=== PATIENT | female | born 1955 | race Caucasian/White ===

== ENCOUNTER 2020-06-01 08:14 | Outpatient (REF) | payer OTHER, SELFPAY ==
--- NOTE | 2020-06-01 | CT_ITS ---
EXAMINATION: LUNG CANCER SCREENING CLINICAL INFORMATION: Lung cancer screening COMPARISON: Previous chest CT scans most recent May 2019 TECHNIQUE: Axial images through the chest without contrast. Sagittal and coronal reconstructions on the technologist workstation were performed. Patient dose 41 mgy/cm. This CT examination was performed using dose optimization techniques as appropriate, variously including the following: *Automated exposure control *Adjustment of mA and/or kV according to patient size (this includes techniques or standardized protocols for targeted exams where dose is matched to indication/reason for exam; i.e. extremities or head) *Use of iterative reconstruction technique FINDINGS: The small calcified and noncalcified pulmonary nodules are stable, largest measuring 2 mm. The lungs are otherwise clear. The mediastinum is normal. There is no pleural effusion or pleural thickening. No chest wall mass or enlarged axillary lymph nodes are seen. There is a peripheral low-attenuation lesion in the medial segment the left lobe of the liver measuring 1.3 x 2 cm that is stable and may represent a cyst. There are mild degenerative changes of the spine. IMPRESSION: Stable small pulmonary nodules. Category: 2 benign Recommendation: Annual low-dose chest CT follow-up recommended.
== END 2020-06-01 08:15 | disposition home or self-care (01) ==
LOC: HO.CT 08:14
PROVIDERS: PCP Internal Medicine; Visit Provider Surgery
DX: F17.210 Nicotine dependence, cigarettes, uncomplicated (principal); R91.8 Other nonspecific abnormal finding of lung field
CPT/HCPCS: 71250

== ENCOUNTER → 2020-06-05 08:34 | Outpatient (BNVA) | payer OTHER, SELFPAY | PROVIDERS: PCP Internal Medicine; Referring Provider Internal Medicine; Visit Provider Internal Medicine | DX: Z76.89 Persons encountering health services in other specified circumstances (principal) ==

== ENCOUNTER 2020-08-10 10:44 | Outpatient (REF) | payer OTHER, SELFPAY ==
--- NOTE | 2020-08-10 11:12 | MM_ITS ---
EXAMINATION: MM SCREENING DIGITAL BREAST TOMOSYNTHESIS, BILATERAL CLINICAL INFORMATION: Screening. Asymptomatic. The lifetime risk of breast cancer based on the Tyrer-Cuzick Model is 5.8%. COMPARISON: Mammography: July 01, 2019 and studies dating back to April 26, 2016 TECHNIQUE: Digital breast tomosynthesis is performed in both the craniocaudal and mediolateral oblique views along with computer-aided detection (CAD). Synthesized 2D images are generated from the tomosynthesis. FINDINGS: The breasts are heterogeneously dense, which may obscure small masses (ACR BI-RADS breast composition Category c). There are no significant masses, abnormal calcifications, or other abnormalities. MM/MM tomosynthesis screening BI IMPRESSION: There are no significant changes from prior study. ASSESSMENT: BI-RADS 1: Negative RECOMMENDATION: Routine annual mammography screening. This patient's information was entered into a reminder system with a target due date for their next mammogram.
== END 2020-08-10 10:45 | disposition home or self-care (01) ==
LOC: HO.MAMMO 10:44
PROVIDERS: PCP Internal Medicine; Visit Provider Internal Medicine
DX: Z12.31 Encounter for screening mammogram for malignant neoplasm of breast (principal)
CPT/HCPCS: 77063; 77067

== ENCOUNTER 2020-08-21 13:17 | Outpatient (REF) | payer OTHER, SELFPAY ==
[2020-08-21 13:53] LABS: COVID-19 Test Negative (Negative)
== END 2020-08-21 13:18 | disposition home or self-care (01) ==
LOC: HO.EMPCOV 13:17
PROVIDERS: PCP Internal Medicine; Visit Provider Internal Medicine
DX: Z20.828 Contact with and (suspected) exposure to other viral communicable diseases (principal)
CPT/HCPCS: 87635; C9803

== ENCOUNTER 2020-09-08 07:48 | Outpatient (REF) | payer OTHER, SELFPAY ==
[2020-09-08 11:06] LABS: Alanine Aminotransferase 22 U/L (0-31); Aspartate Amino Transferase 21 U/L (5-31); Cholesterol 228 mg/dL; HDL Cholesterol 56 mg/dL; LDL Cholesterol Calculated 114 mg/dl; Triglycerides 294 mg/dL; Uric Acid 4.7 mg/dL (2.4-5.7)
== END 2020-09-08 07:49 | disposition home or self-care (01) ==
LOC: HO.10HDL 07:48
PROVIDERS: Visit Provider Internal Medicine
DX: M10.9 Gout, unspecified (principal); E78.5 Hyperlipidemia, unspecified
CPT/HCPCS: 36415; 80061; 84450; 84460; 84550

== ENCOUNTER 2020-10-09 07:47 | Outpatient (REF) | payer OTHER, SELFPAY ==
[2020-10-09 11:02] LABS: Albumin Level 4.2 g/dL (3.5-5.0)
== END 2020-10-09 07:48 | disposition home or self-care (01) ==
LOC: HO.10HDL 07:47
PROVIDERS: Visit Provider Surgery
DX: Z98.890 Other specified postprocedural states (principal)
CPT/HCPCS: 36415; 82040; 82310

== ENCOUNTER 2020-10-19 08:20 | Outpatient (REF) | payer OTHER, SELFPAY ==
[2020-10-19 11:14] LABS: Albumin Level 4.3 g/dL (3.5-5.0); Calcium 9.3 mg/dL (8.4-10.2)
== END 2020-10-19 08:21 | disposition home or self-care (01) ==
LOC: HO.10HDL 08:20
PROVIDERS: Visit Provider Surgery
DX: E89.2 Postprocedural hypoparathyroidism (principal); Z98.890 Other specified postprocedural states
CPT/HCPCS: 36415; 82040; 82310

== ENCOUNTER 2020-12-01 08:09 | Outpatient (REF) | payer OTHER, SELFPAY ==
[2020-12-01 08:43] LABS: COVID-19 Test Negative (Negative)
== END 2020-12-01 08:10 | disposition home or self-care (01) ==
LOC: HO.EMPCOV 08:09
PROVIDERS: Visit Provider Internal Medicine
DX: Z20.822 Contact with and (suspected) exposure to COVID-19 (principal)
CPT/HCPCS: 36415; 87635; C9803

== ENCOUNTER → 2020-12-11 09:20 | Outpatient (BNVA) | payer OTHER, SELFPAY | PROVIDERS: PCP Internal Medicine; Visit Provider Internal Medicine ==

== ENCOUNTER 2020-12-14 12:17 | Outpatient (REF) | payer OTHER, SELFPAY ==
[2020-12-14 14:42] LABS: Alanine Aminotransferase 27 U/L (0-31); Albumin Level 4.3 g/dL (3.5-5.0); Alkaline Phosphatase 77 U/L (39-117); Anion Gap 14 (12-20); Aspartate Amino Transferase 22 U/L (5-31); Bilirubin Total 0.5 mg/dL (0.0-1.0); Blood Urea Nitrogen 10 mg/dL (9-16); Calcium 9.3 mg/dL (8.4-10.2); Carbon Dioxide 23 mmol/L (22-29); Chloride 107 mmol/L (96-108); Estimated Glomerular Filt Rate > 60; Glucose Random 96 mg/dL (60-115); Phosphorus 3.8 mg/dL (2.7-4.5); Potassium 4.1 mmol/L (3.3-5.1); Sodium 140 mmol/L (135-145); Total Protein 6.8 g/dL (6.5-8.0)
[2020-12-14 15:04] LABS: Vitamin D 25-OH Total 72.6 ng/mL (>30)
[2020-12-15 12:46] LABS: Calcium (PTHI) 9.8 mg/dL (8.6-10.4); PTHI 8 pg/mL (14-64)
== END 2020-12-14 12:18 | disposition home or self-care (01) ==
LOC: HO.10HDL 12:17
PROVIDERS: Visit Provider Internal Medicine
DX: E21.3 Hyperparathyroidism, unspecified (principal); E55.9 Vitamin D deficiency, unspecified
CPT/HCPCS: 36415; 80053; 82306; 83970; 84100

== ENCOUNTER 2021-01-10 07:45 | Outpatient (REF) | payer OTHER, SELFPAY ==
[2021-01-10 10:36] LABS: Cholesterol 218 mg/dL; HDL Cholesterol 52 mg/dL; LDL Cholesterol Calculated 100 mg/dl; Triglycerides 334 mg/dL
== END 2021-01-10 07:46 | disposition home or self-care (01) ==
LOC: HO.10HDL 07:45
PROVIDERS: Visit Provider Internal Medicine
DX: E78.1 Pure hyperglyceridemia (principal)
CPT/HCPCS: 36415; 80061

== ENCOUNTER 2021-04-03 07:47 | Outpatient (REF) | payer OTHER, SELFPAY ==
[2021-04-03 11:36] LABS: Alanine Aminotransferase 21 U/L (0-31); Albumin Level 4.4 g/dL (3.5-5.0); Alkaline Phosphatase 74 U/L (39-117); Anion Gap 13 (12-20); Aspartate Amino Transferase 26 U/L (5-31); Bilirubin Total 0.3 mg/dL (0.0-1.0); Blood Urea Nitrogen 10 mg/dL (9-16); Carbon Dioxide 24 mmol/L (22-29); Chloride 107 mmol/L (96-108); Cholesterol 218 mg/dL; Estimated Glomerular Filt Rate > 60; Glucose Random 88 mg/dL (60-115); HDL Cholesterol 58 mg/dL; LDL Cholesterol Calculated 96 mg/dl; Potassium 4.3 mmol/L (3.3-5.1); Sodium 140 mmol/L (135-145); Triglycerides 320 mg/dL
[2021-04-03 11:58] LABS: Free T4 (Free Thyroxine) 0.97 ng/dL (0.71-1.85); Thyroid Stimulating Hormone 1.46 uIU/mL (0.32-4.0); Vitamin D 25-OH Total 43.6 ng/mL (>30)
[2021-04-06 13:36] LABS: Calcium (PTHI) 8.8 mg/dL (8.6-10.4); PTHI 22 pg/mL (14-64)
== END 2021-04-03 07:48 | disposition home or self-care (01) ==
LOC: HO.10HDL 07:47
PROVIDERS: Visit Provider Internal Medicine
DX: E21.3 Hyperparathyroidism, unspecified (principal); E04.2 Nontoxic multinodular goiter; E55.9 Vitamin D deficiency, unspecified; E78.1 Pure hyperglyceridemia
CPT/HCPCS: 36415; 80053; 80061; 82306; 83970; 84100; 84439; 84443

== ENCOUNTER → 2021-04-09 08:36 | Outpatient (BNVA) | payer OTHER, SELFPAY | PROVIDERS: PCP Internal Medicine; Visit Provider Internal Medicine ==

== ENCOUNTER 2021-04-25 11:26 | Outpatient (REF) | payer OTHER, SELFPAY ==
--- NOTE | ~2021-04-25 | US_ITS ---
EXAMINATION: US THYROID CLINICAL INFORMATION: Nontoxic multinodular goiter. COMPARISON: Ultrasound soft tissue head/neck thyroid dated 04/19/2020. TECHNIQUE: Linear transducer grayscale and color Doppler examination with attention to the region of the thyroid. FINDINGS: SIZE: Measurements of the thyroid lobes and nodules are given in sagittal, anteroposterior and transverse dimensions respectively. Right Thyroid Lobe: 4.3 x 1.0 x 1.5 cm, volume 3.4 mL. Previously 5.1 x 1.4 x 1.1 cm, volume 4.2 mL. Parenchyma: The gland echotexture is homogeneous. Thyroid vascularity is increased. Left Thyroid Lobe: 4.0 x 1.3 x 1.4 cm, volume 3.8 mL. Previously 4.3 x 2.0 x 1.4 cm, volume 6.4 mL. Parenchyma: The gland echotexture is homogeneous. Thyroid vascularity is increased. Isthmus: 0.28 cm in maximum AP dimension. Previously 0.51 cm. Estimated total number of nodules greater than or equal to 1 cm: 0. Capacity Analyst nodules are described as follows: 1. Location: Left mid. Size: 0.64 x 0.64 x 1.0 cm, volume 0.21 mL. Previously: 0.74 x 0.86 x 0.72 cm, volume 0.24 mL. Nodule characteristics: Composition: Solid/almost completely solid (2). Echogenicity: Isoechoic (1). Shape: Not taller than wide (0). Margins: Smooth (0). Echogenic Foci: None (0). ACR TI-RADS total points: 3 Previous: n/a ACR TI-RADS category: 3 Previous: n/a Significant change in size (>/= 20% in 2 dimensions and minimal increase of 2 mm or 50% or greater increase in volume): No Change in features: No Change in ACR TI-RADS risk category: n/a 2. Location: Left inferior. Size: 0.59 x 0.26 x 0.51 cm, volume 0.04 mL. Previously: 0.61 x 0.45 x 0.6 cm, volume 0.09 mL. Nodule characteristics: Composition: Solid/almost completely solid (2). Echogenicity: Isoechoic (1). Shape: Not taller than wide (0). Margins: Smooth (0). Echogenic Foci: None (0). ACR TI-RADS total points: 3 Previous: n/a ACR TI-RADS category: 3 Previous: n/a Significant change in size (>/= 20% in 2 dimensions and minimal increase of 2 mm or 50% or greater increase in volume): No Change in features: No Change in ACR TI-RADS risk category: n/a NODES: No lymphadenopathy is seen in the tissue surrounding the thyroid gland. US/US thyroid IMPRESSION: Two tiny subcentimeter nodules left lobe of thyroid. No follow-up is indicated. ACR TI-RADS RECOMMENDATION REFERENCE: Ultrasound-guided fine-needle aspiration, followup ultrasound, no further follow up. * TR1 (0 point) and TR 2 (2 points): No FNA or follow up * TR3 (3 points): FNA if more than or equal to 2.5 cm in maximum dimension, followup ultrasound in 1, 3 and 5 years if 1.5 to 2.4 cm in maximum dimension. * TR4 (4-6 points): FNA if more than or equal to 1.5 cm in maximum dimension, followup ultrasound in 1, 2, 3 and 5 years if 1 to 1.4 cm in maximum dimension. * TR5 (more than or equal to 7 points): FNA if more than or equal to 1 cm in maximum dimension, followup ultrasound every year for 5 years if 0.5 to 0.9 cm in maximum dimension. * TR3, TR4 or TR5 nodules that are below the size threshold for follow up receive no follow up.
== END 2021-04-25 11:27 | disposition home or self-care (01) ==
LOC: HO.US 11:26
PROVIDERS: Visit Provider Internal Medicine
DX: E04.2 Nontoxic multinodular goiter (principal)
CPT/HCPCS: 76536

== ENCOUNTER 2021-08-23 07:56 | Outpatient (REF) | payer OTHER, SELFPAY ==
--- NOTE | ~2021-08-23 | MM_ITS ---
EXAMINATION: MM SCREENING DIGITAL BREAST TOMOSYNTHESIS, BILATERAL CLINICAL INFORMATION: Screening. Asymptomatic. The lifetime risk of breast cancer based on the Tyrer-Cuzick Model is 6%. COMPARISON: Mammography: 08/10/2020, 07/01/2019, 06/29/2018 TECHNIQUE: Digital breast tomosynthesis is performed in both the craniocaudal and mediolateral oblique views along with computer-aided detection (CAD). Synthesized 2D images are generated from the tomosynthesis. FINDINGS: The breasts are heterogeneously dense, which may obscure small masses (ACR BI-RADS breast composition Category c). There are no significant masses, abnormal calcifications, or other abnormalities. There is fine fibronodular parenchymal pattern similar to prior studies. Some scattered small nodularity likely related to intramammary nodes are stable. The skin contours are smooth. No significant changes. MM/MM tomosynthesis screening BI IMPRESSION: No mammographic evidence of malignancy. ASSESSMENT: BI-RADS 2: Benign RECOMMENDATION: Routine annual mammography screening. This patient's information was entered into a reminder system with a target due date for their next mammogram.
== END 2021-08-23 07:57 | disposition home or self-care (01) ==
LOC: HO.MAMMO 07:56
PROVIDERS: PCP Internal Medicine; Visit Provider Internal Medicine
DX: Z12.31 Encounter for screening mammogram for malignant neoplasm of breast (principal)
CPT/HCPCS: 77063; 77067

== ENCOUNTER 2022-02-19 06:49 | Day surgery (SDC) | payer OTHER, SELFPAY ==
[2022-02-12 14:10] VITALS: BMI 21.7
--- NOTE | 2022-02-18 09:06 | HO.ANESPROP2 ---
Documented by User: Heydi Phan NP 02/18/22 09:07 HPI - Anesthesia Eval Consult details Narrative: 66yo F for Colonoscopy PMFSH Active Problems Active Problems: All Active Problems (Updated 02/12/22 @ 14:07 by Lisandra Lux, VINCENT) Hyperparathyroidism (Acute) Osteoporosis (Acute) Multinodular thyroid (Acute) Vitamin D deficiency (Acute) Hypertriglyceridemia (Acute) Pruritic intertrigo (Acute) Smoker unmotivated to quit (Acute) Past Medical History Medical History Gout Gout Family History Family History Mother Alcoholism Father Alcoholism Surgical History Surgical History Hx of parathyroidectomy No pertinent past surgical history Social History Social History Alcohol intake: current Patient Tobacco Use Status: Current everyday Tobacco user Tobacco use type: Cigarette Cigarette Packs Per Day: 1 Cigarettes Per Day: 10 Years Smoked: 48 Smoked in Last 30 Days: Yes e-Cigarette/Vaping Use: Never Used Second Hand Smoke Exposure: No Use of substances other than those prescribed or required for medical reasons: No Are you DNR?: No Advance Directives: No Advance Directives Information Provided: Yes Advance Directives Date on File: 06/01/20 Meds Allergies Allergy/AdvReac Type Severity Reaction Status Date / Time Seasonal Allergies Allergy Mild seasonal Verified 09/10/21 03:13 allergies Home Medications Medication Instructions Recorded Confirmed Last Taken Type calcium carbonate 600 mg-vitamin tab PO 01/16/21 09/10/21 Unknown History D3 25 mcg (1,000 unit) tablet omega-3 fatty acids 1,250 mg 2,500 mg PO DAILY 01/16/21 02/19/22 02/09/22 History capsule Exam Exam Date and Time: February 18, 2022 0906 Height,Weight and Vital Signs: Height 5 ft 2 in Weight 53.977 kg Assessment and Plan Assessment Anesthesia Assessment: Chart Reviewed Documented by User: Felix Sharpe MD 02/19/22 08:27 PMFSH Past Medical History Medical History Gout Gout Family History Family History Mother Alcoholism Father Alcoholism Family history of problems with anesthesia: No Surgical History Surgical History Hx of parathyroidectomy No pertinent past surgical history History of Problems with Anesthesia: No Social History Social History Alcohol intake: current Patient Tobacco Use Status: Current everyday Tobacco user Tobacco use type: Cigarette Cigarette Packs Per Day: 1 Cigarettes Per Day: 10 Years Smoked: 48 Smoked in Last 30 Days: Yes e-Cigarette/Vaping Use: Never Used Second Hand Smoke Exposure: No Use of substances other than those prescribed or required for medical reasons: No Are you DNR?: No Advance Directives: No Advance Directives Information Provided: Yes Advance Directives Date on File: 06/01/20 Meds Allergies Allergy/AdvReac Type Severity Reaction Status Date / Time Seasonal Allergies Allergy Mild seasonal Verified 09/10/21 03:13 allergies Home Medications Medication Instructions Recorded Confirmed Last Taken Type calcium carbonate 600 mg-vitamin tab PO 01/16/21 09/10/21 Unknown History D3 25 mcg (1,000 unit) tablet omega-3 fatty acids 1,250 mg 2,500 mg PO DAILY 01/16/21 02/19/22 02/09/22 History capsule Exam Airway Mallampati Class: II TM Dist: >3cm Neck ROM: Full Assessment and Plan Assessment Anesthesia Assessment: Anesthesia Plan Discussed Final Anesthetic Review Family History of Problems with Anesthesia: No History of Problems with Anesthesia: No NPO: Yes ASA Class: II Final Preanesthetic Review: No Changes in Pt Med Stat, Meds/Allgs Chart Reviewed, Consent Obtained/Reviewed and Anes Risks/Benef Reviewed Patient Risk: Low Procedure Risk: Low Anesthetic Plan Anesthetic Plan: MAC: Disposition: Standard PACU
[2022-02-19 07:06] VITALS: BMI 21.2
[2022-02-19 07:37] VITALS: BP 141/68; PULSE 74; RESP 18; TEMP 36.8; O2SAT 99
[2022-02-19] MEDS: Sodium Phosphate,Mono-Dibasic 133 ML ENEMA PR (07:54)
[2022-02-19] MEDS: Lactated Ringers 1,000 ML 100 ML IVCONT (07:54)
--- NOTE | 2022-02-19 08:27 | MHC.SHP ---
Pre-Procedural Eval Section A Date of Service: 02/19/22 Section B Chief Complaint: screening Details of Present Illness: see H&P no changes Relevant Family History (Specify if Yes): No Relevant Social History: None Present Medications: see Short Stay Collaborative assessment Medical History: No relevant PMH History of Previous Operations: No relevant previous surgery Allergies: Allergies Allergy/AdvReac Type Severity Reaction Status Date / Time Seasonal Allergies Allergy Mild seasonal Verified 09/10/21 03:13 allergies Review of Systems Sugical H&P ROS: Negative: Constitution, Cardiovascular, Respiratory, Neurological, Psychiatric, Hem-Onc, Allergic/Immunologic, Gastrointestinal, Genitourinary, Musculoskeletal, Integumentary, Endocrine and Eyes/Ears/Nose/Throat Exam Surgical H&P Exam: Normal: HEENT, Normal: Heart, Normal: Lungs, Normal: Extremities, Normal: Abdomen, Normal: Skin and Normal: Neurological Plan Diagnosis/Plan: Unchanged I have reviewed the history and physical and performed a pertinent physical examination on my patient. No changes have occurred unless specified.
[2022-02-19 09:05] VITALS: BP 124/69; PULSE 68; RESP 15; TEMP 36.2; O2SAT 97
[2022-02-19 09:20] VITALS: BP 153/78; PULSE 68; RESP 18; TEMP 36.2; O2SAT 100
--- NOTE | 2022-02-19 13:15 | OP_ITS ---
SURGEON: Roberto Chen MD INDICATIONS: Colon cancer screening and prior history of adenomatous colon polyps. PREOPERATIVE DIAGNOSIS: POSTOPERATIVE DIAGNOSIS: PROCEDURE PERFORMED: Colonoscopy to the terminal ileum with biopsy. ESTIMATED BLOOD LOSS: COMPLICATIONS: ANESTHESIA: ASSISTANTS: SPECIMENS: MEDICATIONS: Monitored anesthesia care. DESCRIPTION OF PROCEDURE: History and physical were performed. The risks and benefits of the procedure were explained to the patient. Informed consent was obtained. The patient was placed in the left lateral decubitus position. A digital rectal exam was performed and was found to be normal. The Olympus pediatric video colonoscope was introduced into the rectum and advanced to the cecum without difficulty. The cecum was identified by transillumination, palpation, and identification of ileocecal valve. Examination was performed. The scope was removed. She tolerated the procedure well and was sent to recovery area in stable condition. FINDINGS: The terminal ileum was not examined. The visualized colonic mucosa was within normal limits without evidence of masses or ulcers. Multiple polyps were identified. All were less than 10 mm and removed with biopsy forceps. Polyps were located at 70 cm, 45 cm, 30 cm, 35 cm, and 2 in the rectum. There were other multiple rectal polyps that appeared hyperplastic, which were not biopsied. Retroflexed examination showed internal hemorrhoids. There was moderate sigmoid diverticulosis. IMPRESSION: Colon polyps. RECOMMENDATION: Follow up the biopsy results. MD SUZANNE Alejandro/ANGEL / [id number]
== END 2022-02-19 10:05 | disposition home or self-care (01) ==
PROVIDERS: PCP Internal Medicine; Visit Provider Internal Medicine Gastroenterology
PROC: 0DJD8ZZ Inspection of Lower Intestinal Tract, Via Natural or Artificial Opening Endoscopic (ICD-10-PCS; CPT 45378; principal; 2022-02-19 08:10)
DX: Z12.11 Encounter for screening for malignant neoplasm of colon (principal); D12.0 Benign neoplasm of cecum; Z86.010 Personal history of colon polyps; D12.4 Benign neoplasm of descending colon; D12.5 Benign neoplasm of sigmoid colon; K62.1 Rectal polyp; K57.30 Diverticulosis of large intestine without perforation or abscess without bleeding; K64.8 Other hemorrhoids; E78.00 Pure hypercholesterolemia, unspecified; M10.9 Gout, unspecified; Z79.899 Other long term (current) drug therapy; F17.210 Nicotine dependence, cigarettes, uncomplicated
CPT/HCPCS: 45380; 88305

== ENCOUNTER 2022-03-07 07:36 | Outpatient (REF) | payer OTHER, SELFPAY ==
[2022-03-07 10:41] LABS: Alanine Aminotransferase 23 U/L (0-31); Albumin Level 4.4 g/dL (3.5-5.0); Alkaline Phosphatase 77 U/L (39-117); Anion Gap 14 (12-20); Aspartate Amino Transferase 25 U/L (5-31); Bilirubin Total 0.5 mg/dL (0.0-1.0); Blood Urea Nitrogen 12 mg/dL (9-16); Carbon Dioxide 23 mmol/L (22-29); Chloride 106 mmol/L (96-108); Cholesterol 238 mg/dL; Estimated Glomerular Filt Rate > 60; Glucose Random 102 mg/dL (60-115); HDL Cholesterol 59 mg/dL; LDL Cholesterol Calculated 135 mg/dl; Phosphorus 3.9 mg/dL (2.7-4.5); Potassium 4.2 mmol/L (3.3-5.1); Sodium 139 mmol/L (135-145); Total Protein 6.9 g/dL (6.5-8.0); Triglycerides 222 mg/dL; Uric Acid 4.6 mg/dL (2.4-5.7)
[2022-03-07 11:01] LABS: Thyroid Stimulating Hormone 1.93 uIU/mL (0.32-4.0)
[2022-03-07 11:02] LABS: Free T4 (Free Thyroxine) 0.95 ng/dL (0.71-1.85)
[2022-03-12 19:41] LABS: Calcium (PTHI) 9.1 mg/dL (8.6-10.4); PTHI 32 pg/mL (16-77)
== END 2022-03-07 07:37 | disposition home or self-care (01) ==
LOC: HO.10HDL 07:36
PROVIDERS: Absent Provider Internal Medicine; Visit Provider Internal Medicine
DX: E79.0 Hyperuricemia without signs of inflammatory arthritis and tophaceous disease (principal); E21.3 Hyperparathyroidism, unspecified; E04.2 Nontoxic multinodular goiter; E55.9 Vitamin D deficiency, unspecified; E78.1 Pure hyperglyceridemia
CPT/HCPCS: 36415; 80053; 80061; 82306; 83970; 84100; 84439; 84443; 84550

== ENCOUNTER 2022-03-27 08:08 | Outpatient (REF) | payer OTHER, SELFPAY ==
--- NOTE | ~2022-03-27 | CT_ITS ---
EXAMINATION: CT CHEST SCREENING CLINICAL INFORMATION: Nicotine dependence. COMPARISON: CT lungs 06/01/2020. TECHNIQUE: Multidetector volumetric CT imaging of the chest is performed without contrast using low dose technique. Additional 2D coronal and sagittal reformatted images and axial 3D maximum intensity projection (MIP) images are generated on the CT workstation. This CT examination was performed using dose optimization techniques as appropriate, variously including the following: *Automated exposure control *Adjustment of mA and/or kV according to patient size (this includes techniques or standardized protocols for targeted exams where dose is matched to indication/reason for exam; i.e. extremities or head) *Use of iterative reconstruction technique DLP: 181 mGy-cm FINDINGS: LUNGS: The lungs are well expanded and clear of acute pneumonic process. There are punctate 2 mm calcified nodules, stable. A subpleural 2 mm nodule left upper lobe axial image 95/6 is stable. No new nodules seen. Minimal atelectasis/scarring seen in the lingula. MEDIASTINUM: The thyroid lobes are symmetrical and normal. Central trachea and the bronchi are widely patent. Heart size and the great vessels are normal caliber. There is no pericardial effusion. A small hiatal hernia is noted. No abnormal-sized mediastinal or hilar lymph nodes seen. PLEURA: There is no pleural effusion. No pleural mass or thickening. AXILLA: Small shotty lymph nodes are seen axilla. The chest wall is asymmetric with a small right hemithorax compared to left side. No chest wall lesion seen. UPPER ABDOMEN: There are 2 hypodense 1.3 cm lesions left hepatic lobe measuring cyst density. There is a punctate calcification left upper pole cortex. OSSEOUS STRUCTURES: No aggressive lytic or sclerotic process seen. Mild ventral spondylosis mid and lower dorsal spine. CT/CT lung screening IMPRESSION: Stable calcified 2 mm pulmonary nodule and a pleural-based 2 mm left upper lobe nodule. ASSESSMENT: Lung-RADS category 2: Benign. RECOMMENDATION: Low-dose annual CT chest.
== END 2022-03-27 08:09 | disposition home or self-care (01) ==
LOC: HO.CT 08:08
PROVIDERS: PCP Internal Medicine; Visit Provider Physician Assistant Medical
DX: Z12.2 Encounter for screening for malignant neoplasm of respiratory organs (principal); F17.210 Nicotine dependence, cigarettes, uncomplicated
CPT/HCPCS: 71271

== ENCOUNTER 2022-05-07 14:26 | Outpatient (REF) | payer OTHER, SELFPAY ==
--- NOTE | ~2022-05-07 | US_ITS ---
EXAMINATION: US THYROID CLINICAL INFORMATION: Nontoxic multinodular goiter. COMPARISON: Ultrasound thyroid 04/25/2021 and 04/19/2020. TECHNIQUE: Linear transducer grayscale and color Doppler examination with attention to the region of the thyroid. FINDINGS: SIZE: Measurements of the thyroid lobes and nodules are given in sagittal, anteroposterior and transverse dimensions respectively. Right Thyroid Lobe: 4.0 x 1.2 x 1.3 cm, volume 3.3 mL. Previously 4.3 x 1.0 x 1.5 cm, volume 3.4 mL. Parenchyma: The gland echotexture is homogeneous. Thyroid vascularity is increased. Left Thyroid Lobe: 4.5 x 1.6 x 1.3 cm, volume 4.9 mL. Previously 4.0 x 1.3 x 1.4 cm, volume 3.8 mL. Parenchyma: The gland echotexture is homogeneous. Thyroid vascularity is increased. Isthmus: 0.4 cm in maximum AP dimension. Previously 0.3 cm. Estimated total number of nodules greater than or equal to 1 cm: 0. Insert Cutter nodules are described as follows: 1. Location: Left mid/inferior. Size: 0.7 x 0.7 x 0.9 cm, volume 0.23 mL. Previously: 0.6 x 0.6 x 1.0 cm, volume 0.21 mL. Nodule characteristics: Composition: Solid (2). Echogenicity: Isoechoic (1). Shape: Not taller than wide (0). Margins: Smooth (0). Echogenic Foci: None (0). ACR TI-RADS total points: 3 Previous: 3 ACR TI-RADS category: 3 Previous: 3 Significant change in size (>/= 20% in 2 dimensions and minimal increase of 2 mm or 50% or greater increase in volume): None Change in features: None Change in ACR TI-RADS risk category: None 2. Location: Left mid/inferior. Size: 0.5 x 0.4 x 0.6 cm, volume 0.06 mL. Previously: 0.5 x 0.2 x 0.5 cm, volume 0.04 mL. Nodule characteristics: Composition: Solid/almost completely solid (2). Echogenicity: Isoechoic (1). Shape: Not taller than wide (0). Margins: Smooth (0). Echogenic Foci: None (0). ACR TI-RADS total points: 3 Previous: 3 ACR TI-RADS category: 3 Previous: 3 Significant change in size (>/= 20% in 2 dimensions and minimal increase of 2 mm or 50% or greater increase in volume): None Change in features: None Change in ACR TI-RADS risk category: None NODES: No lymphadenopathy is seen in the tissue surrounding the thyroid gland. US/US thyroid IMPRESSION: Slightly hypervascular normal-sized thyroid gland with small nonsuspicious subcentimeter nodules in the left lobe. Recommend continuous followup. ACR TI-RADS RECOMMENDATION REFERENCE: Ultrasound-guided fine-needle aspiration, followup ultrasound, no further follow up. * TR1 (0 point) and TR 2 (2 points): No FNA or follow up * TR3 (3 points): FNA if more than or equal to 2.5 cm in maximum dimension, followup ultrasound in 1, 3 and 5 years if 1.5 to 2.4 cm in maximum dimension. * TR4 (4-6 points): FNA if more than or equal to 1.5 cm in maximum dimension, followup ultrasound in 1, 2, 3 and 5 years if 1 to 1.4 cm in maximum dimension. * TR5 (more than or equal to 7 points): FNA if more than or equal to 1 cm in maximum dimension, followup ultrasound every year for 5 years if 0.5 to 0.9 cm in maximum dimension. * TR3, TR4 or TR5 nodules that are below the size threshold for follow up receive no follow up.
== END 2022-05-07 14:27 | disposition home or self-care (01) ==
LOC: HO.US 14:26
PROVIDERS: Visit Provider Internal Medicine
DX: E04.2 Nontoxic multinodular goiter (principal)
CPT/HCPCS: 76536

== ENCOUNTER 2022-08-28 07:58 | Outpatient (REF) | payer OTHER, SELFPAY ==
--- NOTE | ~2022-08-28 | MM_ITS ---
EXAMINATION: MM SCREENING DIGITAL BREAST TOMOSYNTHESIS, BILATERAL CLINICAL INFORMATION: Screening. Asymptomatic. The lifetime risk of breast cancer based on the Tyrer-Cuzick Model is 1.4%. COMPARISON: Mammography: August 23, 2021 and studies dating back to April 26, 2016 TECHNIQUE: Digital breast tomosynthesis is performed in both the craniocaudal and mediolateral oblique views along with computer-aided detection (CAD). Synthesized 2D images are generated from the tomosynthesis. FINDINGS: The breasts are heterogeneously dense, which may obscure small masses (ACR BI-RADS breast composition Category c). There are no significant masses, abnormal calcifications, or other abnormalities. MM/MM tomosynthesis screening BI IMPRESSION: No significant changes ASSESSMENT: BI-RADS 1: Negative RECOMMENDATION: Routine annual mammography screening. This patient's information was entered into a reminder system with a target due date for their next mammogram.
--- NOTE | ~2022-08-28 | MM_ITS ---
EXAMINATION: BONE DENSITOMETRY CLINICAL INDICATION: Menopause. COMPARISON: Previous BD dated 04/18/2020 and baseline BD dated 07/01/2019. TECHNIQUE: Using a [employer] DXA System (software version: 13.1) manufactured by [employer], dual-energy x-ray absorptiometry was performed of the lumbar spine and left hip. The images are of good technical quality. Summary results are attached. FINDINGS: AP SPINE L1-L2 (excluding L3 and L4): The data of L1-L4 has been changed to exclude the L3 and L4 vertebral bodies, because degenerative sclerosis at these levels may cause overestimation of lumbar spine density. Current: BMD 1.003 g/cm2, Z-score 0.7, T-score -1.3, osteopenia, 10.2% increase from previous, 4.3% increase from baseline (<5% change is not significant). Prior: BMD 0.910 g/cm2. Baseline: BMD 0.962 g/cm2. LEFT FEMUR, NECK: Current: BMD 0.808 g/cm2, Z-score 0.1, T-score -1.7, osteopenia. Prior: BMD 0.726 g/cm2. Baseline: BMD 0.741 g/cm2. LEFT FEMUR, TOTAL: Current: BMD 0.885 g/cm2, Z-score 0.5, T-score -1.0, normal, 4.6% increase from previous, 2.3% increase from baseline (<5% change is not significant). Prior: BMD 0.846 g/cm2. Baseline: BMD 0.865 g/cm2. IDENTIFIED RISK FACTORS: Menopause, hyperparathyroid, secondary osteoporosis, tobacco use (current smoker). HISTORY OF FRACTURE: None listed. MEDICATIONS: Calcium, vitamin D. MM/XR DEXA axial skeleton IMPRESSION: 1. DIAGNOSIS: Osteopenia based on the lowest T-score value of -1.7 in the femoral neck applying World Health Organization criteria. 2. 10-YEAR FRACTURE RISK PREDICTION, FRAX: Major osteoporotic fracture (clinical spine, forearm, hip or shoulder) 9.2%. Hip fracture 1.9%. 3. Treatment Recommendations: NOF guidelines recommend consideration for treatment in postmenopausal women and men age 50 and older presenting with the following: -A hip or vertebral (clinical or morphometric) fracture. -T-score less than or equal to -2.5 at the femoral neck or spine after appropriate evaluation to exclude secondary causes. -Low bone mass at the hip or spine and a 10-year fracture probability by FRAX of greater than or equal to 3% for hip fracture or greater than or equal to 20% for major osteoporotic fracture based on the [place] adapted WHO algorithm. 4. Other Recommendations: All treatment decisions require clinical judgment and consideration of individual patient factors, including patient preferences, comorbidities, previous drug use, risk factors not captured in the FRAX model (e.g. frailty, falls, vitamin D deficiency, increased bone turnover, interval significant decline in bone density) and possible under or overestimation of fracture risk by FRAX. Additional medical evaluation for secondary cause of low bone mineral density may be appropriate. FUTURE SCAN RECOMMENDATION: People with diagnosed cases of osteoporosis or at high risk for fracture should have regular bone mineral density tests. For patients eligible for Medicare, routine testing is allowed once every 2 years. The testing frequency can be increased to one year for patients who have rapidly progressing disease, those who are receiving or discontinuing medical therapy to restore bone mass, or have additional risk factors.
== END 2022-08-28 07:59 | disposition home or self-care (01) ==
LOC: HO.MAMMO 07:58
PROVIDERS: Visit Provider Internal Medicine
DX: Z12.31 Encounter for screening mammogram for malignant neoplasm of breast (principal); Z13.820 Encounter for screening for osteoporosis; Z78.0 Asymptomatic menopausal state
CPT/HCPCS: 77063; 77067; 77080

== ENCOUNTER 2023-01-20 15:09 | Outpatient (REF) | payer OTHER, SELFPAY ==
[2023-01-21 12:10] LABS: Influenza A PCR NEGATIVE (Negative); Influenza B PCR NEGATIVE (Negative); Resp Syncy Virus RNA Qual PCR NEGATIVE (Negative); SARS COV2 PCR INHOUSE NEGATIVE (Negative)
== END 2023-01-20 15:10 | disposition home or self-care (01) ==
LOC: HO.LNP 15:09
PROVIDERS: Visit Provider Nurse Practitioner Family
DX: Z20.822 Contact with and (suspected) exposure to COVID-19 (principal); R09.89 Other specified symptoms and signs involving the circulatory and respiratory systems
CPT/HCPCS: 0241U

== ENCOUNTER 2023-05-21 12:19 | Outpatient (AMB) | payer OTHER, SELFPAY ==
[2023-05-21 13:05] VITALS: BP 126/60; PULSE 74; O2SAT 97; BMI 21.2
--- NOTE | 2023-05-21 13:05 | A.OFFPC_ITS ---
Vital Signs 05/21/23 13:05 Height 5 ft 1.5 in Weight 114 lb BMI 21.2 BP 126/60 Blood Pressure Location Lt brachial Position Sitting Pulse 74 Pulse Source Pulse Oximeter Pulse Oximetry (%) 97 Oxygen Delivery Method Room Air Intake Visit Reasons: Physical exam Intake Note: Pt is here today for her PE Allergies Seasonal Allergies Allergy (Mild, Verified 05/21/23 13:19) seasonal allergies Medication List - Last Reconciled 05/21/23 by Bernice Guardado MD allopurinol 100 mg PO DAILY calcium carbonate-vitamin D3 600 mg-25 mcg (1,000 unit) tabs PO clotrimazole-betamethasone 1-0.05 % 1 appl topical BID PRN 10 days omega-3 fatty acids 2,500 mg PO DAILY Tobacco use date assessed: 05/21/23 Fall risk assessment: No Falls in past year Last assessed Fall Risk: 05/21/23 Dental Screening Dental Screen Date: 05/21/23 Did you have a dental visit in the last 12 months?: No Was dental information given to patient?: Patient declined HPI Physical exam HPI Details 67-year-old lady here today for physical exam. She has mixed dyslipidemia currently taking only [place] 3 fatty acid supplements . States that she has not been really compliant with her diet, but gets regular exercise. Has been having recurrent pain and stiffness on the D IP joints in both fingers, wondering if this is gout flareup. Up-to-date with her screening mammogram bone density scan. She also is up-to-date with her screening colonoscopy done in 2021 due again in 2026 Has had her low-dose CT scan can of lung last year, overdue for follow-up regarding her multiple pulmonary nodule. [facility] Medical History (Updated 05/26/23 @ 02:38 by Bernice Guardado MD) Osteopenia of multiple sites Osteoarthritis Multiple pulmonary nodules Gout Smoker unmotivated to quit Pruritic intertrigo Hypertriglyceridemia Vitamin D deficiency Multinodular thyroid Hyperparathyroidism Surgical History Hx of parathyroidectomy Family History Mother Alcoholism Father Alcoholism Social History Housing: House Alcohol intake: current Patient Tobacco Use Status: Current everyday Tobacco user Tobacco use type: Cigarette Cigarette Packs Per Day: 1 Cigarettes Per Day: 10 Years Smoked: 48 e-Cigarette/Vaping Use: Never Used Second Hand Smoke Exposure: No Advance Directives Date on File: 06/01/20 service: No Current occupational status: employed Cognitive needs: No Hearing needs: No Vision needs: Yes Questionnaire PHQ-9 Over the last 2 weeks, how often have you been bothered by any of the following problems? 1. Little interest or pleasure in doing things: not at all 2. Feeling down, depressed, or hopeless: not at all 3. Trouble falling or staying asleep, or sleeping too much: not at all 4. Feeling tired or having little energy: not at all 5. Poor appetite or overeating: not at all 6. Feeling bad about yourself - or that you are a failure or have let yourself or your family down: not at all 7. Trouble concentrating on things, such as reading the newspaper or watching television: not at all 8. Moving or speaking so slowly that other people could have noticed. Or the opposite - being so fidgety or restless that you have been moving around a lot more than usual: not at all 9. Thoughts that you would be better off or of hurting yourself in some way: not at all Total score: 0 Depression Screening Interpretation: Negative 48822 - PHQ-9 Billing: Yes Source: Developed by Drs. Shorty Hinkle, Nora Madden, Derek Garcia and colleagues, with an educational alessandro from [employer]. Thrive Questionnaire Date Thrive assessed: 05/21/23 I am a: Patient What is your living situation today?: I have a steady place to live Within the past 12 months, did the food you bought not last and you didn't have the money to get more?: Never true Within the past 12 months, did you worry whether your food would run out before you got money to buy more?: Never true Do you have trouble paying for medicines?: No Do you have trouble getting transportation to medical appointments?: No Do you have trouble paying your heating and electricity bill?: No Do you have trouble taking care of your child, family member or friend?: No Do you have trouble with day-to-day activities such as bathing, preparing meals, shopping, managing finances, etc.?: No Are you currently unemployed and looking for a job?: No Are you interested in more education?: No EM-7 AMB Questionnaire EM-7 Date EM - 7 assessed: 05/21/23 Feeling nervous, anxious, or on edge: 0 = Not at all Not being able to stop or control worryin = Not at all Worrying too much about different things: 0 = Not at all Trouble relaxin = Not at all Being so restless that it is hard to sit still: 0 = Not at all Becoming easily annoyed or irritable: 0 = Not at all Feeling afraid as if something awful might happen: 0 = Not at all Total EM-7 score (0-4 normal; 5-9 mild; 10-14 moderate; 15-21 severe): 0 Source: Developed by Drs. Shorty Hinkle, Nora Madden, Derek Garcia and colleagues, with an educational alessandro from [employer]. Review of Systems Const Denies fatigue, Denies fever(s), Denies headache(s) and Denies weight loss Eyes Details: [facility] Reports no additional complaints ENT Reports no additional complaints and Denies headache(s) Card Denies chest pain, Denies irregular heart rhythm, Denies dyspnea and Denies dyspnea on exertion Resp Denies chest congestion, Denies cough, Denies dyspnea and Denies dyspnea on exertion GI Reports no additional complaints Denies hematuria, Denies urinary frequency, Denies difficulty voiding, Denies genital pruritis, Denies genital lesions and Denies dysuria Musc Reports no additional complaints Skin/Breast Reports as per HPI Neuro Denies headache(s) Psych Reports no additional complaints Endo Denies fatigue Henry/Lymph Reports no additional complaints Aller/Immun Reports no additional complaints Physical exam (Primary Care) Vital Signs: Last Vital Signs Pulse 74 05/21/23 13:05 BP 126/60 05/21/23 13:05 Pulse Ox 97 05/21/23 13:05 Oxygen Delivery Method Room Air 05/21/23 13:05 BMI result Body Mass Index 21.2 Tobacco/Smoking Status: Tobacco use Status Tobacco use date assessed 05/21/23 05/21/23 13:07 Patient Tobacco Use Status Current everyday Tobacco 05/21/23 13:07 Tobacco use type Cigarette 05/21/23 13:07 e-Cigarette/Vaping Use Never Used 05/21/23 13:07 PHQ-9: PHQ-9 Score PHQ-9: Total score 0 05/26/23 02:34 Depression Screening Interpretation: Negative Thrive Assessment: Date of Thrive Assessment Date Thrive assessed 05/21/23 05/21/23 13:08 Const Other: Alert oriented x3, no acute distress noted ambulatory normal gait Orientation/consciousness: patient oriented x3 HENMT Head: Yes normocephalic and Yes atraumatic Ears: TM's normal bilaterally and EAC's normal Face and sinus: Yes face symmetric Mouth: Normal oral and palatal mucosa present, oropharynx normal and moist mucous membranes Eyes General: appearance normal, both eyes and all related structures Neck Other: Supple , no lymphadenopathy Chest Breast/axilla palpation: normal palpation of the breasts Resp Auscultation: clear to auscultation bilaterally Cardio Other: S1-S2 present regular rate and rhythm GI Inspection: Yes normal to inspection Palpation (GI): Soft to palpation, nontender, no guarding and no masses Back/Spine/Pelvis Back: No back tenderness Skin General skin exam: no rashes or lesions noted Neuro General: patient oriented x3, gait normal, moves all extremities, Normal light touch and pain sensation, no focal motor deficits and CN's II-XI intact bilaterally Extrem Other: Erythematous nodular lesions on D IP joint of fingers of both hands, mild ulnar deviation of fingers bilateral General: Yes full ROM, Yes no joint enlargement, Yes no pedal edema, Yes no calf tenderness and Yes normal gait Psych Appearance: grossly normal and well kempt Mental Status: mental status grossly normal Speech and movement: Normal speech and movement present Affect: normal affect Attitude: cooperative Immunizations pneumoc 20-rajesh conj-dip cr(PF) 0.5 mL IM syringe Performing Provider: Bernice Guardado MD [place]forming Location[place] [facility] Administered by: Linda Kuhn CMA on 05/21/23 13:51 Dose Route Admin Location Dispensed Lot Number Expiration Date NDC Merchandise Distributor 0.5 mL IM Left Deltoid 0.5 mL [id number] 07/01/24 [id number] [employer] VIS Given Date VIS Provided VIS Publication Date 05/21/23 Single Vaccine 21 Eligibility Eligibility Date Funding Source Not [facility] Eligible 05/21/23 Private Assessment and Plan Assessment & Plan (1) Annual visit for general adult medical examination with abnormal findings: Code(s): Z00.01 - Encounter for general adult medical examination with abnormal findings Plan: Will check appropriate labs. Recommended dental visit every 6 months and regular eye exams, at least every 2 years. Take adequate calcium in diet and vitamin-D 3 at 2000 IU per cap once a day, in addition to weight-bearing exercises to help maintain good muscle tone and weight control. Instructed to do self-breast exam, and recommended to get yearly mammogram, starting at age 40. Reminded to get her COVID booster and flu shot, up-to-date with Tdap and shingles vaccine. Prevnar 20 given today. Colonoscopy is up-to-date due again in 2026 (2) Multinodular thyroid: Code(s): E04.2 - Nontoxic multinodular goiter Plan: TSH and free T4 levels ordered (3) Vitamin D deficiency: Code(s): E55.9 - Vitamin D deficiency, unspecified Plan: Check vitamin-D level (4) Hypertriglyceridemia: Code(s): E78.1 - Pure hyperglyceridemia Plan: Continue taking [place] 3 fatty acid supplements at least 2-3 capsules daily. Stressed importance of adherence to low-cholesterol diet and regular exercise, at least 30 minutes 3 to 4 times a week. Advised patient to make healthy food choices, eat more fruits, vegetables, whole grains, wild caught fish and low- fat dairy. Limit amount of meat and fried or fatty food products, as well as processed foods and fast foods. (5) Hyperuricemia: Code(s): E79.0 - Hyperuricemia without signs of inflammatory arthritis and tophaceous disease Plan: Will check uric acid level (6) Osteoarthritis: Code(s): M19.90 - Unspecified osteoarthritis, unspecified site Qualifiers: Laterality: bilateral Osteoarthritis location: hand Osteoarthritis type: primary Qualified Code(s): M19.041 - Primary osteoarthritis, right hand; M19.042 - Primary osteoarthritis, left hand Plan: May take Tylenol arthritis 650 mg 1 tablet every 8 hours as needed, and may take an occasional ibuprofen as needed for severe pain. Try applying absorbent reza to affected joints (7) Smoker unmotivated to quit: Code(s): F17.200 - Nicotine dependence, unspecified, uncomplicated Plan: Patient strongly advised to stop smoking, as smoking damages blood vessels, degenerative of joints and spine, damage to lungs and heart., predisposes to developing certain cancers like lung, breast, bladder, colon. Recommended to try decreasing cigarette use by 1-2 cigarettes a day. Advised to monitor what triggers are for smoking so that this can be discussed on the next office visit. We can discuss different options to quit smoking when ready. (8) Multiple pulmonary nodules: Code(s): R91.8 - Other nonspecific abnormal finding of lung field Plan: Reminded to schedule appointment for low-dose lung CT screening Orders: Orders TSH reflex Free T4 05/21/23 E04.2 - Nontoxic multinodular goiter, E21.3 - Hyperparathyroidism, unspecified, E55.9 - Vitamin D deficiency, unspecified, E78.1 - Pure hyperglyceridemia, E79.0 - Hyperuricemia without signs of inflammatory arthritis and tophaceous disease, M81.0 - Age-related osteoporosis without current pathological fracture, Z00.01 - Encounter for general adult medical examination with abnormal findings Alanine Aminotransferase 05/21/23 E04.2 - Nontoxic multinodular goiter, E21.3 - Hyperparathyroidism, unspecified, E55.9 - Vitamin D deficiency, unspecified, E78.1 - Pure hyperglyceridemia, E79.0 - Hyperuricemia without signs of inflammatory arthritis and tophaceous disease, M81.0 - Age-related osteoporosis without current pathological fracture, Z00.01 - Encounter for general adult medical examination with abnormal findings Aspartate Amino Transferase 05/21/23 E04.2 - Nontoxic multinodular goiter, E21.3 - Hyperparathyroidism, unspecified, E55.9 - Vitamin D deficiency, unspecified, E78.1 - Pure hyperglyceridemia, E79.0 - Hyperuricemia without signs of inflammatory arthritis and tophaceous disease, M81.0 - Age-related osteoporosis without current pathological fracture, Z00.01 - Encounter for general adult medical examination with abnormal findings Basic Metabolic Panel Fasting 05/21/23 E04.2 - Nontoxic multinodular goiter, E21.3 - Hyperparathyroidism, unspecified, E55.9 - Vitamin D deficiency, unspecified, E78.1 - Pure hyperglyceridemia, E79.0 - Hyperuricemia without signs of inflammatory arthritis and tophaceous disease, M81.0 - Age-related osteoporosis without current pathological fracture, Z00.01 - Encounter for general adult medical examination with abnormal findings Lipid Panel 05/21/23 E04.2 - Nontoxic multinodular goiter, E21.3 - Hyperparathyroidism, unspecified, E55.9 - Vitamin D deficiency, unspecified, E78.1 - Pure hyperglyceridemia, E79.0 - Hyperuricemia without signs of inflammatory arthritis and tophaceous disease, M81.0 - Age-related osteoporosis without current pathological fracture, Z00.01 - Encounter for general adult me dical examination with abnormal findings Uric Acid 05/21/23 E04.2 - Nontoxic multinodular goiter, E21.3 - Hyperparathyroidism, unspecified, E55.9 - Vitamin D deficiency, unspecified, E78.1 - Pure hyperglyceridemia, E79.0 - Hyperuricemia without signs of inflammatory arthritis and tophaceous disease, M81.0 - Age-related osteoporosis without current pathological fracture, Z00.01 - Encounter for general adult medical examination with abnormal findings Vitamin D 25-OH Total 05/21/23 E04.2 - Nontoxic multinodular goiter, E21.3 - Hyperparathyroidism, unspecified, E55.9 - Vitamin D deficiency, unspecified, E78.1 - Pure hyperglyceridemia, E79.0 - Hyperuricemia without signs of inflammatory arthritis and tophaceous disease, M81.0 - Age-related osteoporosis without current pathological fracture, Z00.01 - Encounter for general adult medical examination with abnormal findings Pneumococcal 20 Immunization 05/21/23 Z23 - Encounter for immunization Medications: Refilled allopurinol 100 mg PO DAILY 90 tabs 3RF Coding Level of Care Code Est Pt Prev Care >65y(28051) Diagnoses Annual visit for general adult medical examination with abnormal findings Z00.01 Multinodular thyroid E04.2 Vitamin D deficiency E55.9 Hypertriglyceridemia E78.1 Hyperuricemia E79.0 Primary osteoarthritis of both hands M19.041; M19.042 Laterality: bilateral Osteoarthritis location: hand Osteoarthritis type: primary Smoker unmotivated to quit F17.200 Multiple pulmonary nodules R91.8
== END 2023-05-21 13:54 | disposition home or self-care (01) ==
PROVIDERS: PCP Internal Medicine; Visit Provider Internal Medicine
DX: Z23 Encounter for immunization (principal)
CPT/HCPCS: 90471; 90677; 99397

== ENCOUNTER 2023-05-28 07:53 | Outpatient (REF) | payer OTHER, SELFPAY ==
[2023-05-28 09:52] LABS: Alanine Aminotransferase 18 U/L (0-31); Anion Gap 15 (12-20); Aspartate Amino Transferase 23 U/L (5-31); Blood Urea Nitrogen 8 mg/dL (9-16); Carbon Dioxide 26 mmol/L (22-29); Chloride 103 mmol/L (96-108); Cholesterol 219 mg/dL (<200); Estimated Glomerular Filt Rate > 60; Glucose Fasting 91 mg/dL (60-99); HDL Cholesterol 62 mg/dL (>40); LDL Cholesterol Calculated 118 mg/dL (<100); Sodium 140 mmol/L (135-145); Triglycerides 197 mg/dL (<150)
[2023-05-28 10:08] LABS: TSH reflex Free T4 1.47 uIU/mL (0.32-4.0); Vitamin D 25-OH Total 50.8 ng/mL (>30)
== END 2023-05-28 07:54 | disposition home or self-care (01) ==
LOC: HO.10HDL 07:53
PROVIDERS: Visit Provider Internal Medicine
DX: Z00.01 Encounter for general adult medical examination with abnormal findings (principal); E04.2 Nontoxic multinodular goiter; E55.9 Vitamin D deficiency, unspecified; E78.1 Pure hyperglyceridemia; M81.0 Age-related osteoporosis without current pathological fracture; E21.3 Hyperparathyroidism, unspecified; E79.0 Hyperuricemia without signs of inflammatory arthritis and tophaceous disease
CPT/HCPCS: 36415; 80048; 80061; 82306; 84443; 84450; 84460; 84550

== ENCOUNTER 2023-08-05 08:51 | Outpatient (REF) | payer OTHER, SELFPAY ==
--- NOTE | ~2023-08-05 | CT_ITS ---
EXAMINATION: CT CHEST LOW-DOSE SCREENING WITHOUT CONTRAST HISTORY: Asymptomatic patient meeting criteria for lung screening. Nicotine dependence PATIENT PACK-YEAR HISTORY: 47 Current Smoker: Yes If former smoker, years since quitting: NA COMPARISON: 03/27/2022 TECHNIQUE: Multidetector volumetric non-contrast CT imaging of the chest was obtained on a [id number] 128 slice scanner using low dose screening CT technique. Axial thin section 0.625 mm reformations in soft tissue and lung windows were obtained. Sagittal and coronal reformations were obtained. Axial MIP images were also created and reviewed. RECONSTRUCTED WIDTH: 1.25 mm x 1.25 mm TOTAL EXAM DLP: 42 mGy-cm CTDIvol: 1.0 mGy FINDINGS: LUNGS: Lungs are clear well-expanded with few very small punctate scattered calcified granulomas, too small to characterize and no new lung nodules identified. There is subpleural left upper lobe 0.14 cm nodule seen on image 102 series 6 Central airways are patent. MEDIASTINUM/LYMPHATIC STRUCTURES: No mediastinal, hilar or axillary adenopathy or free fluid collection. THYROID GLAND: Unremarkable to the extent seen. CARDIOVASCULAR STRUCTURES: Aortic and heart size normal. No significant coronary artery calcifications. No pericardial effusion. PLEURA: VISUALIZED ABDOMEN: There is cystic density left hepatic lobe abating age of the lesions measured together 2.5 cm and stable since previous examination. MUSCULO-SKELETAL: No suspicious focal findings. SPINAL COMPRESSION: Absent. CT/CT lung screening IMPRESSION: 1. No findings suspicious for malignancy/pulmonary nodule(s)/other. 2. History of lung cancer: None 3. Lung-Rads 2 4. DESCRIPTOR: Benign. PHYSICAL FINDINGS (S CATEGORY): Finding: Benign Significance category: No clinically significant. RECOMMENDATION: Low dose lung CT. overall in 1 year. Visual estimate of coronary calcified plaque burden: None. However, this exam cannot replace a dedicated cardiac CT calcium score for accurate assessment.
== END 2023-08-05 08:52 | disposition home or self-care (01) ==
LOC: HO.CT 08:51
PROVIDERS: PCP Internal Medicine; Visit Provider Physician Assistant Medical
DX: Z12.2 Encounter for screening for malignant neoplasm of respiratory organs (principal); F17.210 Nicotine dependence, cigarettes, uncomplicated
CPT/HCPCS: 71271

== ENCOUNTER 2023-08-28 09:57 | Outpatient (AMB) | payer OTHER, SELFPAY ==
[2023-08-28 10:10] VITALS: BP 110/68; PULSE 64; O2SAT 100; BMI 21.3
--- NOTE | 2023-08-28 10:10 | MHC.PC.OV ---
Vital Signs 08/28/23 10:10 Height 5 ft 1.5 in Weight 114 lb 8 oz BMI 21.3 BP 110/68 Blood Pressure Location Rt brachial Position Sitting Pulse 64 Pulse Source Pulse Oximeter Pulse Oximetry (%) 100 Oxygen Delivery Method Room Air Intake Visit Reasons: 3 month fu Intake Note: Pt is here to follow up on her results of her CT scan results Allergies Seasonal Allergies Allergy (Mild, Verified 08/28/23 10:43) seasonal allergies Medication List - Last Reconciled 08/28/23 by Bernice Guardado MD allopurinol 100 mg PO DAILY calcium carbonate-vitamin D3 600 mg-25 mcg (1,000 unit) tabs PO omega-3 fatty acids 2,500 mg PO DAILY Tobacco use date assessed: 08/28/23 Fall risk assessment: No Falls in past year Last assessed Fall Risk: 08/28/23 Dental Screening Dental Screen Date: 08/28/23 Did you have a dental visit in the last 12 months?: No Did you have a dental problem in the last 6 months where you did not have access to dental care?: No Was dental information given to patient?: No HPI 3 month fu HPI Details 68-year-old lady here today for follow-up on her multinodular thyroid. She is currently asymptomatic, with last TSH within normal limits. She also had recent low-dose CT scan done for screening for lung cancer which came back with benign findings . [facility] Medical History (Updated 05/26/23 @ 02:38 by Bernice Guardado MD) Osteopenia of multiple sites Osteoarthritis Multiple pulmonary nodules Gout Smoker unmotivated to quit Pruritic intertrigo Hypertriglyceridemia Vitamin D deficiency Multinodular thyroid Hyperparathyroidism Surgical History Hx of parathyroidectomy Family History Mother Alcoholism Father Alcoholism Social History Housing: House Alcohol intake: current Patient Tobacco Use Status: Current everyday Tobacco user Tobacco use type: Cigarette Cigarette Packs Per Day: 1 Cigarettes Per Day: 10 Years Smoked: 48 e-Cigarette/Vaping Use: Never Used Second Hand Smoke Exposure: No Advance Directives Date on File: 06/01/20 service: No Current occupational status: employed Cognitive needs: No Hearing needs: No Vision needs: Yes Questionnaire PHQ-9 Over the last 2 weeks, how often have you been bothered by any of the following problems? Depression Screening Interpretation: Negative Depression Screening Done: Yes Source: Developed by Drs. Shorty Hinkle, Nora Madden, Derek Garcia and colleagues, with an educational alessandro from [employer]. Thrive Questionnaire Date Thrive assessed: 05/21/23 EM-7 AMB Questionnaire EM-7 Date EM - 7 assessed: 05/21/23 Source: Developed by Drs. Shorty Hinkle, Nora Madden, Derek Garcia and colleagues, with an educational alessandro from [employer]. Review of Systems Const Denies fatigue, Denies fever(s), Denies headache(s) and Denies weight loss ENT Reports no additional complaints and Denies headache(s) Card Denies chest pain, Denies irregular heart rhythm, Denies dyspnea and Denies dyspnea on exertion Resp Denies chest congestion, Denies cough, Denies dyspnea and Denies dyspnea on exertion GI Reports no additional complaints Musc Reports no additional complaints Neuro Denies headache(s) Endo Denies fatigue Physical exam (Primary Care) Vital Signs: Last Vital Signs Pulse 64 08/28/23 10:10 BP 110/68 08/28/23 10:10 Pulse Ox 100 08/28/23 10:10 Oxygen Delivery Method Room Air 08/28/23 10:10 BMI result Body Mass Index 21.3 Tobacco/Smoking Status: Tobacco use Status Tobacco use date assessed 08/28/23 08/28/23 10:14 Patient Tobacco Use Status Current everyday Tobacco 08/28/23 10:14 Tobacco use type Cigarette 08/28/23 10:14 e-Cigarette/Vaping Use Never Used 08/28/23 10:14 Depression Screening Interpretation: Negative Thrive Assessment: Date of Thrive Assessment Date Thrive assessed 05/21/23 08/28/23 10:14 Const Other: Alert oriented x3, no acute distress noted ambulatory normal gait Orientation/consciousness: patient oriented x3 HENTX Head: Yes normocephalic Face and sinus: Yes face symmetric Mouth: oropharynx normal and moist mucous membranes Eyes General: appearance normal, both eyes and all related structures Neck Other: Supple , no lymphadenopathy , thyroid nonpalpable Resp Auscultation: clear to auscultation bilaterally Cardio Other: S1-S2 present regular rate and rhythm GI Inspection: Yes normal to inspection Palpation (GI): Soft to palpation, nontender, no guarding and no masses Skin General skin exam: no rashes or lesions noted Neuro General: patient oriented x3, gait normal, moves all extremities, Normal light touch and pain sensation, no focal motor deficits and CN's II-XI intact bilaterally Extrem Other: Erythematous nodular lesions on D IP joint of fingers of both hands, mild ulnar deviation of fingers bilateral General: Yes full ROM, Yes no joint enlargement, Yes no pedal edema, Yes no calf tenderness and Yes normal gait Assessment and Plan Assessment & Plan (1) Multinodular thyroid: Code(s): E04.2 - Nontoxic multinodular goiter Plan: Follow-up Thyroid ultrasound ordered. Patient currently asymptomatic, with current TSH within normal limits Orders: Orders US thyroid Today E04.2 - Nontoxic multinodular goiter Coding Level of Care Code Est Pt Level 3 (46139) Diagnoses Multinodular thyroid E04.2
== END 2023-08-28 12:42 | disposition home or self-care (01) ==
PROVIDERS: PCP Internal Medicine; Visit Provider Internal Medicine
DX: E04.2 Nontoxic multinodular goiter (principal)
CPT/HCPCS: 99213

== ENCOUNTER 2023-09-03 08:02 | Outpatient (REF) | payer OTHER, SELFPAY ==
--- NOTE | ~2023-09-03 | MM_ITS ---
EXAMINATION: MM SCREENING DIGITAL BREAST TOMOSYNTHESIS, BILATERAL CLINICAL INFORMATION: Screening. Asymptomatic. COMPARISON: Mammography: This study is compared with prior exams dating back to 2019. TECHNIQUE: Digital breast tomosynthesis is performed in both the craniocaudal and mediolateral oblique views along with computer-aided detection (CAD). Synthesized 2D images are generated from the tomosynthesis. FINDINGS: There are scattered areas of fibroglandular density (ACR BI-RADS breast composition Category b). There are no significant masses, abnormal calcifications, or other abnormalities. There is a coarse, benign calcification in the upper outer quadrant of the left breast. MM/MM tomosynthesis screening BI IMPRESSION: No mammographic evidence of malignancy. ASSESSMENT: BI-RADS BI-RADS 2 - Benign Findings RECOMMENDATION: Routine annual mammography screening. 1 year F/U This examination should not preclude the clinical evaluation of a suspicious palpable abnormality. This patient's information was entered into a reminder system with a target due date for their next mammogram.
== END 2023-09-03 08:03 | disposition home or self-care (01) ==
LOC: HO.MAMMO 08:02
PROVIDERS: PCP Internal Medicine; Visit Provider Internal Medicine
DX: Z12.31 Encounter for screening mammogram for malignant neoplasm of breast (principal)
CPT/HCPCS: 77063; 77067

== ENCOUNTER → 2023-09-03 08:15 | Outpatient (BNV) | payer OTHER, SELFPAY | PROVIDERS: PCP Internal Medicine; Visit Provider Radiology Diagnostic Radiology | DX: Z12.31 Encounter for screening mammogram for malignant neoplasm of breast (principal) | CPT/HCPCS: 77063; 77067 ==

== ENCOUNTER 2023-09-30 09:22 | Outpatient (REF) | payer OTHER, SELFPAY ==
--- NOTE | ~2023-09-30 | US_ITS ---
EXAMINATION: US THYROID CLINICAL INFORMATION: Nontoxic multinodular goiter. COMPARISON: Thyroid ultrasound 05/07/2022 and 04/25/2021. TECHNIQUE: Linear transducer murillo-scale and color Doppler examination with attention to the region of the thyroid. FINDINGS: SIZE: Measurements of the thyroid lobes and nodules are given in sagittal, anteroposterior and transverse dimensions respectively. Right Thyroid Lobe: 4.4 x 1.2 x 1.3 cm, volume 3.6 mL. Previously 4.0 x 1.2 x 1.3 cm, volume 3.3 mL. Parenchyma: The gland echotexture is homogeneous. Thyroid vascularity is increased. Left Thyroid Lobe: 3.6 x 1.6 x 1.3 cm, volume 4.0 mL. Previously 4.5 x 1.6 x 1.3 cm, volume 4.9 mL. Parenchyma: The gland echotexture is homogeneous. Thyroid vascularity is increased. Isthmus: 0.4 cm in maximum AP dimension. Previously 0.4 cm. Estimated total number of nodules greater than or equal to 1 cm: 0. Mushroom Sorter Grader nodules are described as follows: 1. Location: Left mid/inferior. Size: 0.7 x 0.8 x 0.8 cm, volume 0.2 mL. Previously: 0.7 x 0.7 x 0.9 cm, volume 0.2 mL. Nodule characteristics: Composition: Solid (2). Echogenicity: Isoechoic (1). Shape: Not taller than wide (0). Margins: Smooth (0). Echogenic Foci: None (0). ACR TI-RADS total points: 3 Previous: 3 ACR TI-RADS category: 3 Previous: 3 Significant change in size (>/= 20% in 2 dimensions and minimal increase of 2 mm or 50% or greater increase in volume): No Change in features: No Change in ACR TI-RADS risk category: No 2. Location: Left mid/inferior. Size: 0.6 x 0.4 x 0.6 cm, volume 0.08 mL. Previously: 0.5 x 0.4 x 0.6 cm, volume 0.06 mL. Nodule characteristics: Composition: Solid (2). Echogenicity: Isoechoic (1). Shape: Not taller than wide (0). Margins: Smooth (0). Echogenic Foci: None (0). ACR TI-RADS total points: 3 Previous: 3 ACR TI-RADS category: 3 Previous: 3 Significant change in size (>/= 20% in 2 dimensions and minimal increase of 2 mm or 50% or greater increase in volume): No Change in features: No Change in ACR TI-RADS risk category: No NODES: No lymphadenopathy is seen in the tissue surrounding the thyroid gland. US/US thyroid IMPRESSION: 1. Left lower lobe nodules are seen, as detailed. No specific imaging follow-up is recommended. 2. There is increased thyroid vascularity, which can be associated with thyroiditis. ACR TI-RADS RECOMMENDATION REFERENCE: Ultrasound-guided fine-needle aspiration, follow up ultrasound, no further followup. * TR1 (0 point) and TR2 (2 points): No FNA or followup * TR3 (3 points): FNA if more than or equal to 2.5 cm in maximum dimension, follow up ultrasound in 1, 3 and 5 years if 1.5 to 2.4 cm in maximum dimension. * TR4 (4-6 points): FNA if more than or equal to 1.5 cm in maximum dimension, follow up ultrasound in 1, 2, 3 and 5 years if 1 to 1.4 cm in maximum dimension. * TR5 (more than or equal to 7 points): FNA if more than or equal to 1 cm in maximum dimension, follow up ultrasound every year for 5 years if 0.5 to 0.9 cm in maximum dimension. * TR3, TR4 or TR5 nodules that are below the size threshold for follow up receive no followup.
== END 2023-09-30 09:23 | disposition home or self-care (01) ==
LOC: HO.US 09:22
PROVIDERS: PCP Internal Medicine; Visit Provider Internal Medicine
DX: E04.2 Nontoxic multinodular goiter (principal)
CPT/HCPCS: 76536

== ENCOUNTER 2024-08-11 07:57 | Outpatient (REF) | payer OTHER, SELFPAY | END 2024-08-11 07:58 | disposition home or self-care (01) | LOC: HO.CT 07:57 | PROVIDERS: PCP Internal Medicine; Visit Provider Physician Assistant Medical | DX: Z12.2 Encounter for screening for malignant neoplasm of respiratory organs (principal); F17.210 Nicotine dependence, cigarettes, uncomplicated | CPT/HCPCS: 71271 ==

== ENCOUNTER 2024-09-07 07:52 | Outpatient (REF) | payer OTHER, SELFPAY ==
--- NOTE | ~2024-09-07 | MM_ITS ---
EXAMINATION: MM SCREENING DIGITAL BREAST TOMOSYNTHESIS, BILATERAL CLINICAL INFORMATION: Screening. Asymptomatic. COMPARISON: Mammography: Comparison is made with available priors TECHNIQUE: Digital breast mammography with tomosynthesis is performed in both the craniocaudal and mediolateral oblique views along with computer-aided detection (CAD). FINDINGS: The breasts are heterogeneously dense, which may obscure small masses (ACR BI-RADS breast composition Category c). There are no significant masses, abnormal calcifications, or other abnormalities. MM/MM tomosynthesis screening BI IMPRESSION: No mammographic evidence of malignancy. ASSESSMENT: BI-RADS BI-RADS 1 - Negative RECOMMENDATION: Routine annual mammography screening. 1 year F/U This examination should not preclude the clinical evaluation of a suspicious palpable abnormality. This patient's information was entered into a reminder system with a target due date for their next mammogram. Electronically signed by: Amber Byrd DO 09/13/2024 03:32 PM M[facility]EL [facility]
== END 2024-09-07 07:53 | disposition home or self-care (01) ==
LOC: HO.MAMMO 07:52
PROVIDERS: PCP Internal Medicine; Visit Provider Internal Medicine
DX: Z12.31 Encounter for screening mammogram for malignant neoplasm of breast (principal)
CPT/HCPCS: 77063; 77067

== ENCOUNTER → 2024-09-07 08:00 | Outpatient (BNV) | payer OTHER, SELFPAY | PROVIDERS: PCP Internal Medicine; Visit Provider Internal Medicine | DX: Z12.31 Encounter for screening mammogram for malignant neoplasm of breast (principal) | CPT/HCPCS: 77063; 77067 ==

== ENCOUNTER 2024-10-14 08:43 | Outpatient (AMB) | payer OTHER, SELFPAY ==
--- NOTE | 2024-10-14 09:21 | MHC.PC.OV ---
Vital Signs 10/14/24 09:32 Height 5 ft 1 in Weight 113 lb BMI 21.3 BP 130/74 Blood Pressure Location Rt brachial Position Sitting Respiration 16 Pulse 81 Pulse Source Pulse Oximeter Pulse Oximetry (%) 94 Oxygen Delivery Method Room Air Intake Visit Reasons: PE Intake Note: Pt is here today for her PE: Last mammogram 09/07/24, bone density scan 08/28/22, colonoscopy 10/18/16 Allergies Seasonal Allergies Allergy (Mild, Verified 10/14/24 09:45) seasonal allergies Medication List - Last Reconciled 10/14/24 by Bernice Guadrado MD allopurinol 100 mg PO DAILY calcium carbonate-vitamin D3 600 mg-25 mcg (1,000 unit) tabs PO omega-3 fatty acids 2,500 mg PO DAILY Tobacco use date assessed: 10/14/24 Fall risk assessment: No Falls in past year Last assessed Fall Risk: 10/14/24 Dental Screening Dental Screen Date: 10/14/24 Did you have a dental visit in the last 12 months?: No Did you have a dental problem in the last 6 months where you did not have access to dental care?: No Was dental information given to patient?: No HPI PE HPI Details 69-year-old lady here today for her physical exam. She is up-to-date with her breast cancer screening, last mammogram done 09/07/2024 with benign findings. She had her last bone density scan done 08/28/2022 which showed presence of osteopenia in multiple sites, due again for a repeat test., last colonoscopy was done in 2021 with 5 tubular adenoma and 1 hyperplastic polyp removed by Dr. Chen, due for repeat screening in 2026. Complains of a persistent cough occasionally productive of whitish phlegm, continues to smoke cigarettes at least 10 cigarettes a day, no desire to quit at present time. She gets yearly lung cancer screening, with last 1 done 08/20/2024 showing Lung-RADS Category 2: Benign appearance or behavior of nodules. Complaining of recurrent upper back pain on left side radiating down to middle back and left shoulder. Has been present now for the last several weeks, no history of trauma or strenuous exertion with left arm [facility] Medical History (Updated 10/14/24 @ 10:19 by Bernice Guardado MD) Upper back pain on left side Chronic cough Nicotine dependence, cigarettes, uncomplicated Osteopenia of multiple sites Osteoarthritis Multiple pulmonary nodules Gout Pruritic intertrigo Hypertriglyceridemia Vitamin D deficiency Multinodular thyroid Hyperparathyroidism Surgical History Hx of parathyroidectomy Family History Mother Alcoholism Father Alcoholism Social History Housing: House Alcohol intake: current Patient Tobacco Use Status: Current everyday Tobacco user Tobacco use type: Cigarette Cigarette Packs Per Day: 1 Cigarettes Per Day: 10 Years Smoked: 48 e-Cigarette/Vaping Use: Never Used Second Hand Smoke Exposure: No Advance Directives Date on File: 06/01/20 service: No Current occupational status: employed Cognitive needs: No Hearing needs: No Vision needs: Yes Questionnaire PHQ-9 Over the last 2 weeks, how often have you been bothered by any of the following problems? 1. Little interest or pleasure in doing things: not at all 2. Feeling down, depressed, or hopeless: not at all 3. Trouble falling or staying asleep, or sleeping too much: not at all 4. Feeling tired or having little energy: not at all 5. Poor appetite or overeating: not at all 6. Feeling bad about yourself - or that you are a failure or have let yourself or your family down: not at all 7. Trouble concentrating on things, such as reading the newspaper or watching television: not at all 8. Moving or speaking so slowly that other people could have noticed. Or the opposite - being so fidgety or restless that you have been moving around a lot more than usual: not at all 9. Thoughts that you would be better off or of hurting yourself in some way: not at all Total score: 0 Depression Screening Interpretation: Negative Depression Screening Done: Yes 60832 - PHQ-9 Billing: Yes Source: Developed by Drs. Shorty Hinkle, Nora Madden, Derek Garcia and colleagues, with an educational alessandro from [employer]. Thrive Questionnaire Date Thrive assessed: 10/07/24 I am a: Patient What is your living situation today?: I have a steady place to live Within the past 12 months, did the food you bought not last and you didn't have the money to get more?: Never true Within the past 12 months, did you worry whether your food would run out before you got money to buy more?: Never true Do you have trouble paying for medicines?: No Do you have trouble getting transportation to medical appointments?: No Do you have trouble paying your heating and electricity bill?: No Do you have trouble taking care of your child, family member or friend?: No Do you have trouble with day-to-day activities such as bathing, preparing meals, shopping, managing finances, etc.?: No Are you currently unemployed and looking for a job?: No Are you interested in more education?: No Please select the resources that you would like help with: None Currently or been in a relationship where the following occur: No concerns reported THRIVE Score: 0 AUDIT C Alcohol Use Questionnaire (AUDIT-C) 1. How often do you have a drink containing alcohol?: 2-3 times a week Total Score: 3 EM-7 AMB Questionnaire EM-7 Date EM - 7 assessed: 10/14/24 Feeling nervous, anxious, or on edge: 0 = Not at all Not being able to stop or control worryin = Not at all Worrying too much about different things: 0 = Not at all Trouble relaxin = Not at all Being so restless that it is hard to sit still: 0 = Not at all Becoming easily annoyed or irritable: 0 = Not at all Feeling afraid as if something awful might happen: 0 = Not at all Total EM-7 score (0-4 normal; 5-9 mild; 10-14 moderate; 15-21 severe): 0 Source: Developed by Drs. Shorty Hinkle, Nora Madden, Derek Garcia and colleagues, with an educational alessandro from [employer]. EM-7 Assessment Billing EM-7 Assessment Tool: EM-7 Assessment 44253 Review of Systems Const Denies fatigue, Denies fever(s), Denies headache(s) and Denies weight loss Eyes Denies change in vision ENT Reports no additional complaints and Denies headache(s) Card Denies chest pain, Denies irregular heart rhythm, Denies dyspnea and Denies dyspnea on exertion Resp Reports as per HPI, Denies dyspnea and Denies dyspnea on exertion GI Reports no additional complaints Reports no additional complaints Musc Reports no additional complaints Skin/Breast Denies breast pain, Denies breast mass and Denies rash Neuro Denies headache(s) Psych Reports no additional complaints Endo Denies fatigue Henry/Lymph Reports no additional complaints Aller/Immun Reports no additional complaints Physical exam (Primary Care) Vital Signs: Last Vital Signs Pulse 81 10/14/24 09:32 Resp 16 10/14/24 09:32 BP 152/74 H 10/14/24 09:32 Pulse Ox 94 10/14/24 09:32 Oxygen Delivery Method Room Air 10/14/24 09:32 BMI result Body Mass Index 21.3 Tobacco/Smoking Status: Tobacco use Status Tobacco use date assessed 10/14/24 10/14/24 09:34 Patient Tobacco Use Status Current everyday Tobacco 10/14/24 09:23 Tobacco use type Cigarette 10/14/24 09:23 e-Cigarette/Vaping Use Never Used 10/14/24 09:23 PHQ-9: PHQ-9 Score PHQ-9: Total score 0 10/14/24 09:45 Depression Screening Interpretation: Negative Thrive Assessment: Date of Thrive Assessment Date Thrive assessed 10/07/24 10/14/24 09:23 Currently or been in a relationship where the following occur: No concerns reported Const Other: Alert oriented x3, no acute distress noted ambulatory normal gait Orientation/consciousness: patient oriented x3 [facility] Head: Yes normocephalic Face and sinus: Yes face symmetric Mouth: oropharynx normal and moist mucous membranes Eyes General: appearance normal, both eyes and all related structures Neck Other: Supple , no lymphadenopathy , thyroid nonpalpable Chest Chest palpation & inspection: normal inspection of the chest Breast/axilla palpation: normal palpation of the breasts Resp Auscultation: clear to auscultation bilaterally Cardio Other: S1-S2 present regular rate and rhythm GI Inspection: Yes normal to inspection Palpation (GI): Soft to palpation, nontender, no guarding and no masses General: Yes no CVA tenderness External Female Exam: normal external appearance and normal appearance of the urethra Speculum Exam - Vagina: normal palpation and vagina atrophic Speculum Exam - Cervix: normal appearance of the cervix, normal palpation, Cervical os closed and Nulliparous cervix present Bimanual exam- vagina & uterus: normal palpation and normal palpation Bimanual Exam- Adnexa, other: normal adnexae, no masses and No adnexal tenderness Back/Spine/Pelvis Other: Tight and tender to palpation over left upper back, no gross bone deformity, no winging of scapula, no erythema or rash noted Back: no CVA tenderness Cervical Spine: cervical ROM normal Skin General skin exam: no rashes or lesions noted Neuro General: patient oriented x3, gait normal, moves all extremities, Normal light touch and pain sensation, no focal motor deficits and CN's II-XI intact bilaterally Extrem General: Yes full ROM, Yes no joint enlargement, Yes no pedal edema, Yes no calf tenderness and Yes normal gait Psych Appearance: grossly normal Mental Status: mental status grossly normal Speech and movement: Normal speech and movement present Affect: normal affect Coding Level of Care Code Est Pt Prev Care >65y(61450) Diagnoses Annual visit for general adult medical examination with abnormal findings Z00.01 Nicotine dependence, cigarettes, uncomplicated F17.210 Chronic cough R05.3 Screening for Malignant Neoplasm of Skin Z12.83 Osteopenia of multiple sites M85.89 Upper back pain on left side M54.9 Multinodular thyroid E04.2 Hypertriglyceridemia E78.1 Multiple pulmonary nodules R91.8 Additional Codes EM-7 Assessment Billing - EM-7 Assessment Tool: EM-7 Assessment 79570 ([id number]) PHQ-9 - 62871 - PHQ-9 Billing: Yes ([id number]) Assessment & Plan Assessment & Plan (1) Annual visit for general adult medical examination with abnormal findings: Code(s): Z00.01 - Encounter for general adult medical examination with abnormal findings Plan: Fasting labs ordered, up-to-date with screening mammogram, ordered repeat bone density scan. Cervical cancer screening attempted today, with pelvic exam done, but Pap specimen spilled and patient does not want to have procedure repeated, will do it again next year's physical. Not want to get any COVID booster, up-to-date with the pneumococcal vaccine, shingles vaccine, Tdap and gets yearly flu shots. Up-to-date with her colon cancer screening due again in 2026 (2) Nicotine dependence, cigarettes, uncomplicated: Comment: current smoker >30PYH Code(s): F17.210 - Nicotine dependence, cigarettes, uncomplicated Category: Medical Plan: Continue with low-dose CT of lung for cancer screening, patient still unmotivated to quit smoking. (3) Chronic cough: Code(s): R05.3 - Chronic cough Category: Medical Plan: Ordered PFT and PFT with methacholine challenge (4) Screening for Malignant Neoplasm of Skin: Code(s): Z12.83 - Encounter for screening for malignant neoplasm of skin Plan: Referred to dermatology (5) Osteopenia of multiple sites: Code(s): M85.89 - Other specified disorders of bone density and structure, multiple sites Category: Medical Plan: Repeat bone density scan ordered, stressed importance of doing regular exercise continue taking vitamin-D 3 supplements and take adequate calcium from dietary sources. (6) Upper back pain on left side: Code(s): M54.9 - Dorsalgia, unspecified Category: Medical Plan: Referral to physical therapy ordered (7) Multinodular thyroid: Code(s): E04.2 - Nontoxic multinodular goiter Category: Medical Plan: Check TSH free T4 (8) Hypertriglyceridemia: Code(s): E78.1 - Pure hyperglyceridemia Category: Medical Plan: Fasting lipid panel ordered (9) Multiple pulmonary nodules: Code(s): R91.8 - Other nonspecific abnormal finding of lung field Category: Medical Plan: Continue low-dose CT scan screening for lung cancer Orders: Orders PFT pulmonary function test 10/14/24 F17.210 - Nicotine dependence, cigarettes, uncomplicated, R05.3 - Chronic cough XR DEXA axial skeleton 10/14/24 M85.89 - Other specified disorders of bone density and structure, multiple sites, Z78.0 - Asymptomatic menopausal state Basic Metabolic Panel Fasting Today E04.2 - Nontoxic multinodular goiter, E55.9 - Vitamin D deficiency, unspecified, E78.1 - Pure hyperglyceridemia, M19.041 - Primary osteoarthritis, right hand, M19.042 - Primary osteoarthritis, left hand, M85.89 - Other specified disorders of bone density and structure, multiple sites, R91.8 - Other nonspecific abnormal finding of lung field, Z13.1 - Encounter for screening for diabetes mellitus, Z13.220 - Encounter for screening for lipoid disorders, Z78.0 - Asymptomatic menopausal state Vitamin D 25-OH Total Today E04.2 - Nontoxic multinodular goiter, E55.9 - Vitamin D deficiency, unspecified, E78.1 - Pure hyperglyceridemia, M19.041 - Primary osteoarthritis, right hand, M19.042 - Primary osteoarthritis, left hand, M85.89 - Other specified disorders of bone density and structure, multiple sites, R91.8 - Other nonspecific abnormal finding of lung field, Z13.1 - Encounter for screening for diabetes mellitus, Z13.220 - Encounter for screening for lipoid disorders, Z78.0 - Asymptomatic menopausal state Lipid Panel Today E78.1 - Pure hyperglyceridemia RT pft w methacholine 10/14/24 F17.210 - Nicotine dependence, cigarettes, uncomplicated, R05.3 - Chronic cough PT Evaluation and Treatment 10/14/24 M54.9 - Dorsalgia, unspecified Aspartate Amino Transferase Today E04.2 - Nontoxic multinodular goiter, E55.9 - Vitamin D deficiency, unspecified, E78.1 - Pure hyperglyceridemia, M19.041 - Primary osteoarthritis, right hand, M19.042 - Primary osteoarthritis, left hand, M85.89 - Other specified disorders of bone density and structure, multiple sites, R91.8 - Other nonspecific abnormal finding of lung field, Z13.1 - Encounter for screening for diabetes mellitus, Z13.220 - Encounter for screening for lipoid disorders, Z78.0 - Asymptomatic menopausal state Alanine Aminotransferase Today E04.2 - Nontoxic multinodular goiter, E55.9 - Vitamin D deficiency, unspecified, E78.1 - Pure hyperglyceridemia, M19.041 - Primary osteoarthritis, right hand, M19.042 - Primary osteoarthritis, left hand, M85.89 - Other specified disorders of bone density and structure, multiple sites, R91.8 - Other nonspecific abnormal finding of lung field, Z13.1 - Encounter for screening for diabetes mellitus, Z13.220 - Encounter for screening for lipoid disorders, Z78.0 - Asymptomatic menopausal state Complete Blood Count Auto Diff Today E04.2 - Nontoxic multinodular goiter, E55.9 - Vitamin D deficiency, unspecified, E78.1 - Pure hyperglyceridemia, M19.041 - Primary osteoarthritis, right hand, M19.042 - Primary osteoarthritis, left hand, M85.89 - Other specified disorders of bone density and structure, multiple sites, R91.8 - Other nonspecific abnormal finding of lung field, Z13.1 - Encounter for screening for diabetes mellitus, Z13.220 - Encounter for screening for lipoid disorders, Z78.0 - Asymptomatic menopausal state TSH reflex Free T4 Today E04.2 - Nontoxic multinodular goiter, E55.9 - Vitamin D deficiency, unspecified, E78.1 - Pure hyperglyceridemia, M19.041 - Primary osteoarthritis, right hand, M19.042 - Primary osteoarthritis, left hand, M85.89 - Other specified disorders of bone density and structure, multiple sites, R91.8 - Other nonspecific abnormal finding of lung field, Z13.1 - Encounter for screening for diabetes mellitus, Z13.220 - Encounter for screening for lipoid disorders, Z78.0 - Asymptomatic menopausal state Referrals Dermatology Referral Z12.83 - Encounter for screening for malignant neoplasm of skin
[2024-10-14 09:32] VITALS: BP 130/74; PULSE 81; RESP 16; O2SAT 94; BMI 21.3
== END 2024-10-14 10:26 | disposition home or self-care (01) ==
PROVIDERS: PCP Internal Medicine; Visit Provider Internal Medicine
DX: Z00.01 Encounter for general adult medical examination with abnormal findings (principal); F17.210 Nicotine dependence, cigarettes, uncomplicated; R05.3 Chronic cough; Z12.83 Encounter for screening for malignant neoplasm of skin; M85.89 Other specified disorders of bone density and structure, multiple sites; M54.9 Dorsalgia, unspecified; E04.2 Nontoxic multinodular goiter; E78.1 Pure hyperglyceridemia; R91.8 Other nonspecific abnormal finding of lung field

== ENCOUNTER → 2024-10-14 08:43 | Outpatient (BNVA) | payer OTHER, SELFPAY | PROVIDERS: PCP Internal Medicine; Visit Provider Internal Medicine | DX: Z00.01 Encounter for general adult medical examination with abnormal findings (principal); R05.3 Chronic cough; M85.89 Other specified disorders of bone density and structure, multiple sites; M54.9 Dorsalgia, unspecified; E04.2 Nontoxic multinodular goiter; E78.1 Pure hyperglyceridemia; R91.8 Other nonspecific abnormal finding of lung field; F17.210 Nicotine dependence, cigarettes, uncomplicated | CPT/HCPCS: 96127 ==

== ENCOUNTER 2024-10-28 08:41 | Outpatient (REF) | payer OTHER, SELFPAY ==
--- NOTE | ~2024-10-28 | MM_ITS ---
EXAMINATION: DXA BONE DENSITY AXIAL HISTORY: Estrogen deficiency TECHNIQUE: [employer] Dual energy absorptiometry (DEXA) of the lumbar spine, total left hip, and femoral neck was performed. COMPARISON: Comparison is made with the prior examination dated 08/28/2022. FINDINGS: The bone mineral density of the lumbar spine is 1.043 with a T-score of -1.0, and a Z-score of 1.0. This represents a BMD change of 4.0% compared to the prior exam. This is not statistically significant. The bone mineral density of the left total hip is 0.861 with a T-score of -1.2, and a Z-score of 0.4. This represents BMD change of -2.7% compared to the prior exam. This is not statistically significant. The bone mineral density of the left femoral neck is 0.792 with a T-score of -1.8, and a Z-score of 0.1. This represents BMD change of -2.0% compared to the prior exam. FRACTURE RISK: The FRAX index suggests a ten year probability of major osteoporotic fracture of 10.2%, and of hip fracture 2.5%. MM/XR DEXA axial skeleton IMPRESSION: Based on bone mineral density, and according to World Health Organization (WHO) criteria, the diagnosis is consistent with osteopenia. All bone density values are in grams per centimeter squared (g/cm2). Statistically, 68% of repeat scans fall within 1 SD (+/- 0.010 g/cm2 for AP spine L1-L4) and 1 SD (+/- 0.012 g/cm2 for femur total) FRAX is a trademark of the [employer] [facility] [employer], a World Health Organization (WHO) Collaborating Center. Electronically signed by: Shorty Musa MD 10/28/2024 09:52 AM [facility] [place]
== END 2024-10-28 08:42 | disposition home or self-care (01) ==
LOC: HO.MAMMO 08:41
PROVIDERS: PCP Internal Medicine; Visit Provider Internal Medicine
DX: Z13.820 Encounter for screening for osteoporosis (principal); M85.89 Other specified disorders of bone density and structure, multiple sites; Z78.0 Asymptomatic menopausal state
CPT/HCPCS: 77080

== ENCOUNTER → 2024-10-28 08:45 | Outpatient (BNV) | payer OTHER, SELFPAY | PROVIDERS: PCP Internal Medicine; Visit Provider Radiology Diagnostic Radiology | DX: E28.39 Other primary ovarian failure (principal) | CPT/HCPCS: 77080 ==

== ENCOUNTER 2024-11-10 07:55 | Outpatient (RCR) | payer OTHER, SELFPAY ==
--- NOTE | 2024-10-26 15:49 | MHC.PT.EP ---
[facility] [place] Office [place] Office [place] Office [address] [phone] F: [phone] F: [phone] F: [phone] F: [phone] Physical Therapy Plan of Care Date of Evaluation: 10/26/24 Date of Surgery: NA Diagnosis: Dorsalgia Upper back pain on L side Assessment: Catherine is a 69 year old female who is referred to PT for dorsalgia, upper back pain on L side . She reports of having pain in L side of back and neck for the last 3 months. She denies any trauma or falls. On PT examination she presents with TTP over L UT, L levator scap, L medial border of scapula, 3/10 pain in L shoulder blade and neck, decreased cervical ROM, pain with cervical motions, decreased neck and shoulder strength and altered posture. She is independent with all ADLS but has pain with them. 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 She would benefit from skilled PT to address the aforementioned impairments and improve tolerance to functional activities. Frequency and Duration: The patient will be seen 2/week for 5 weeks Short Term Goals: 1. Pt will have 50% decrease in pain in 2 weeks 2. Pt will be able to move her neck and shoulder through all planes of motion without pain which will enable her to drive and dress upper body without pain in 3 weeks Detention Goals: 1. Pt will demonstrate an increase in muscle strength by 1 grade which will enable her to perform all ADLS without pain in 5 weeks 2. Pt will be independent with all HEP for symptom management and maintenance following d/c in 5 weeks. Treatment Plan: Modalities to reduce pain, spasms and effusion. Manual therapy to restore motion and function. Therapeutic exercise to improve strength and flexibility. Neuromuscular re-education for posture and balance. Therapeutic activities to return to functional activities of daily living. Electronically signed by: Astrid Crenshaw PT DPT Please sign and return to therapist. Thank you for your referral.
--- NOTE | 2024-11-10 15:32 | MHC.PT.DC ---
[facility] [place] Office [place] Office [place] Office [address] Benji Day [address] [phone] F: [phone] F: [phone] F: [phone] F: [phone] Physical Therapy Discharge Report Diagnosis: Dorsalgia Upper back pain on L side Date of Surgery: NA Date of Evaluation: 10/26/24 Date of Discharge: 11/10/24 Treatments to Date: 6 Cancellations to Date: 0 No Shows to Date: 0 Discharge Status: Achieved Goals Improved Function Independent with HEP Patient Elected to Stop Discharge Summary: Catherine attended 6 PT visits and made significant improvements with PT. She in independent with all HEP and arrived with no pain. She requested d/c today as she was feeling good and feels confident in managing her symptoms at home with HEP. She is therefore being d/c from PT. Electronically signed by: Astrid Crenshaw, PT DPT Please sign and return to therapist. Thank you for your referral.
== END 2024-11-10 15:32 | disposition home or self-care (01) ==
LOC: HO.PT 07:55
PROVIDERS: PCP Internal Medicine; Visit Provider Internal Medicine
DX: M54.9 Dorsalgia, unspecified (principal)
CPT/HCPCS: 97110; 97140; 97161

== ENCOUNTER 2024-11-17 10:46 | Outpatient (REF) | payer OTHER, SELFPAY ==
--- NOTE | 2024-11-17 11:03 | PFT_ITS ---
Flows: FEV1: 79 % of predicted at 1.52 L FVC: 92 % of predicted at 2.25 L FEV1/FVC: 68 % Bronchodilator response: Absent Volumes: Total lung capacity: 93 % of predicted at 3.90 L Residual volume: 108 % of predicted at 1.72 L Slow vital capacity: 83 % of predicted at 2.18 L Expiratory reserve volume: 58 % of predicted at 0.34 L Diffusion capacity: Mildly decreased, corrects to normal after adjustment for alveolar ventilation. Impression: Moderate obstructive ventilatory defect with no bronchodilator response. Decreased diffusion capacity suggests emphysema. MTDD
[2024-11-17 11:43] VITALS: PULSE 89
== END 2024-11-17 10:47 | disposition home or self-care (01) ==
LOC: HO.RESP 10:46
PROVIDERS: PCP Internal Medicine; Visit Provider Internal Medicine
DX: R05.3 Chronic cough (principal); F17.210 Nicotine dependence, cigarettes, uncomplicated
CPT/HCPCS: 94010; 94640; 94727; 94729

== ENCOUNTER → 2024-11-17 11:03 | Outpatient (BNV) | payer OTHER, SELFPAY | PROVIDERS: PCP Internal Medicine; Visit Provider Internal Medicine Pulmonary Disease | DX: R05.3 Chronic cough (principal); F17.210 Nicotine dependence, cigarettes, uncomplicated | CPT/HCPCS: 94060; 94727; 94729 ==

== ENCOUNTER 2024-11-23 07:55 | Outpatient (REF) | payer OTHER, SELFPAY ==
[2024-11-23 08:32] LABS: MANUAL DIFF FLAG NO
[2024-11-23 08:55] LABS: Basophils Absolute Auto 0.1 X10*3/uL (0.0-0.2); Basophils Percent Auto 1.1 % (0-2); Eosinophils Absolute Auto 0.4 X10*3/uL (0.0-0.4); Eosinophils Percent Auto 6.5 % (0-4); Hematocrit 43.7 % (37.0-47.0); Hemoglobin 14.6 g/dl (12.0-16.0); Imm Gran Abs Auto 0.14 X10*3/uL (0.00-0.03); Imm Gran Pct Auto 2.2 % (0.0-0.4); Lymphocytes Absolute Auto 1.2 X10*3/uL (1.2-4.9); Mean Corpuscular HGB Conc 33.4 g/dl (31.0-35.0); Mean Corpuscular Hemoglobin 31.5 pg (27.0-33.0); Mean Corpuscular Volume 94.2 fL (80.0-98.0); Mean Platelet Volume 8.9 fL (9.4-12.3); Monocytes Absolute Auto 0.8 X10*3/uL (0.1-1.2); Neutrophils Absolute Auto 3.8 x10*3/uL (2.0-8.3); Neutrophils Percent Auto 59.2 % (45-73); Platelet Count 381 X10*3/uL (160-400); Red Blood Count 4.64 X10*6/uL (4.20-5.50); Red Cell Distribution Width 13.9 % (11.0-16.0); White Blood Count 6.3 X10*3/uL (4.8-10.8)
[2024-11-23 09:40] LABS: Alanine Aminotransferase 79 U/L (0-31); Anion Gap 15 (12-20); Aspartate Amino Transferase 42 U/L (5-31); Blood Urea Nitrogen 9 mg/dL (9-16); Carbon Dioxide 24 mmol/L (22-29); Chloride 106 mmol/L (96-108); Cholesterol 177 mg/dL (<200); Estimated Glomerular Filt Rate > 60; Glucose Fasting 105 mg/dL (60-99); HDL Cholesterol 44 mg/dL (>40); LDL Cholesterol Calculated 114 mg/dL (<100); Potassium 4.5 mmol/L (3.3-5.1); Sodium 140 mmol/L (135-145); Triglycerides 98 mg/dL (<150)
[2024-11-23 09:59] LABS: TSH reflex Free T4 1.15 uIU/mL (0.32-4.0); Vitamin D 25-OH Total 53.2 ng/mL (>30)
== END 2024-11-23 07:56 | disposition home or self-care (01) ==
LOC: HO.LAB 07:55
PROVIDERS: PCP Internal Medicine; Visit Provider Internal Medicine
DX: M85.89 Other specified disorders of bone density and structure, multiple sites (principal); E04.2 Nontoxic multinodular goiter; E55.9 Vitamin D deficiency, unspecified; E78.1 Pure hyperglyceridemia; M19.041 Primary osteoarthritis, right hand; M19.042 Primary osteoarthritis, left hand; R91.8 Other nonspecific abnormal finding of lung field; Z78.0 Asymptomatic menopausal state; Z13.220 Encounter for screening for lipoid disorders; Z13.1 Encounter for screening for diabetes mellitus
CPT/HCPCS: 36415; 80048; 80061; 82306; 84443; 84450; 84460; 85025

== ENCOUNTER 2024-11-26 10:28 | Outpatient (AMB) | payer OTHER, SELFPAY ==
--- NOTE | 2024-11-26 10:26 | MHC.PC.OV ---
Intake Visit Reasons: andriod/discuss bone density and PFT Allergies Seasonal Allergies Allergy (Mild, Verified 11/27/24 00:09) seasonal allergies Medication List - Last Reconciled 11/27/24 by Bernice Guardado MD allopurinol 100 mg PO DAILY calcium carbonate-vitamin D3 600 mg-25 mcg (1,000 unit) tabs PO omega-3 fatty acids 2,500 mg PO DAILY Tobacco use date assessed: 11/26/24 Fall risk assessment: No Falls in past year Last assessed Fall Risk: 11/26/24 Dental Screening Dental Screen Date: 11/26/24 Did you have a dental visit in the last 12 months?: No Did you have a dental problem in the last 6 months where you did not have access to dental care?: No Was dental information given to patient?: Patient declined HPI andriod/discuss bone density and PFT HPI Details 69-year-old lady , cigarette smoker, here today for follow-up on her results of her pulmonary function test, which showed presence of obstructive airway disease with no response to bronchodilators. Patient however denies any respiratory symptoms, no chronic cough, no shortness of breath on exertion no increased phlegm. Continues to smoke cigarettes, with no desire to quit at present time.. She also had a bone density scan done which showed presence of osteopenia . Has no history of fractures. [facility] Medical History (Updated 11/27/24 @ 00:23 by Bernice Guardado MD) OAD (obstructive airway disease) Impaired fasting glucose Abnormal PFT Upper back pain on left side Chronic cough Nicotine dependence, cigarettes, uncomplicated Osteopenia of multiple sites Osteoarthritis Multiple pulmonary nodules Gout Pruritic intertrigo Hypertriglyceridemia Vitamin D deficiency Multinodular thyroid Hyperparathyroidism Surgical History Hx of parathyroidectomy Family History Mother Alcoholism Father Alcoholism Social History Housing: House Alcohol intake: current Patient Tobacco Use Status: Current everyday Tobacco user Tobacco use type: Cigarette Cigarette Packs Per Day: 1 Cigarettes Per Day: 10 Years Smoked: 48 e-Cigarette/Vaping Use: Never Used Second Hand Smoke Exposure: No Advance Directives Date on File: 06/01/20 service: No Current occupational status: employed Cognitive needs: No Hearing needs: No Vision needs: Yes Questionnaire Thrive Questionnaire Date Thrive assessed: 10/07/24 EM-7 AMB Questionnaire EM-7 Date EM - 7 assessed: 10/14/24 Source: Developed by Drs. Shorty Hinkle, Nora Madden, Derek Garcia and colleagues, with an educational alessandro from [employer]. Review of Systems Const Denies fatigue ENT Reports no additional complaints Card Denies chest pain, Denies irregular heart rhythm, Denies dyspnea and Denies dyspnea on exertion Resp Denies dyspnea and Denies dyspnea on exertion GI Reports no additional complaints Reports no additional complaints Musc Reports no additional complaints Skin/Breast Denies breast pain, Denies breast mass and Denies rash Neuro Reports no additional complaints Psych Reports no additional complaints Endo Denies fatigue Henry/Lymph Reports no additional complaints Aller/Immun Reports no additional complaints Physical exam (Primary Care) Tobacco/Smoking Status: Tobacco use Status Tobacco use date assessed 11/26/24 11/26/24 10:27 Patient Tobacco Use Status Current everyday Tobacco 11/26/24 10:27 Tobacco use type Cigarette 11/26/24 10:27 e-Cigarette/Vaping Use Never Used 11/26/24 10:27 Thrive Assessment: Date of Thrive Assessment Date Thrive assessed 10/07/24 11/26/24 10:27 Telehealth Telehealth Telehealth Platform: [employer] Location of provider rendering services: practice address Location of patient: address on file Patient Identification confirmed using: Name, : Yes Telehealth method: video Patient verbally consented to treatment: Yes Patient verbally consented to billing insurance company: Yes Patient informed of any privacy concerns related to visit: Yes Minutes spent on Phone/Video with Pt.: 15 Results Reviewed Results Reviewed: Name: Catherine Garcia Age/Sex: 69/F : 1955 Unit#: [id number] Attend Dr: Bernice Guardado MD Re11/23/24 Status: DEP REF Location: .LAB Disch: SPEC : [id number] VALERIE: 11/23/24 STATUS: COMP REQ : [id number] RECD: 11/23/[address]: Bernice Guardado MD COMP: 11/23/24 ENTERED: 11/23/[address] [facility] [address]: ORDERED: Met Prof Fast, AST, ALT, Lipid Panel, Vitamin D 25-OH, TSH Rflx Test Result Flag Reference Sodium 140 135-145 mmol/L Potassium 4.5 3.3-5.1 mmol/L CL 106 96-108 mmol/L CO2 24 22-29 mmol/L Gap 15 12-20 BUN 9 9-16 mg/dL Creat 0.64 0.5-1.4 mg/dL eGFR > 60 Chronic Kidney Disease: Estimated GFR < 60 mL/min/1.73m2 Severe Kidney Disease: Estimated GFR < 15 mL/min/1.73m2 FBS 105 H 60-99 mg/dL A fasting glucose from 100-125 mg/dl is considered impaired (pre-diabetes). CA 9.0 8.4-10.2 mg/dL AST (GOT) 42 H 5-31 U/L ALT (GPT) 79 H 0-31 U/L Triglyceride 98 <150 mg/dL Desirable Triglyceride: less than 150 mg/dL Borderline High Triglyceride 150-199 mg/dL High Triglyceride: 200-499 mg/dL Very High Triglyceride: greater than or equal to 5OO mg/dL Cholesterol 177 <200 mg/dL Desirable Cholesterol: less than 200 mg/dL Borderline High Cholesterol: 200-239 mg/dL High Cholesterol: greater than 239 mg/dL LDL Calculated 114 H <100 mg/dL Desirable LDL: less than 100 mg/dL Near Optimal/Above Optimal LDL: 110-129 mg/dL Borderline High LDL: 130-159 mg/dL High LDL: 160-189 mg/dL Very High LDL: greater than or equal to 190 mg/dL HDL 44 >40 mg/dL Desirable HDL: greater than 40 mg/dL Note: This HDL assay may give artificially low results in patients with liver disease. Vitamin D 25-OH 53.2 >30 ng/mL Health Based Reference Values* < 20 ng/mL Deficient 20-30 ng/mL Insufficient > 30 ng/mL Sufficient *Neymar WHITTAKER. N Engl J Med. 2007;357:266-280 There is no well-established upper level of normal vitamin D levels. Some laboratories use 50 ng/mL as an upper limit of normal. However, toxicity is patient-dependent and may occur at any level. Careful correlation with the patient's presentation is necessary and, if there is concern for vitamin D toxicity, treatment should be considered irrespective of the serum level. Care must be taken in interpreting Vitamin D results from different laboratories and methodologies. Published data demonstrated that results from patients undergoing hemodialysis may show a negative bias when tested with various automated 25-OH vitamin D assays when compared to LC-MS/MS. When testing samples from patients whose predominant form of Vitamin D is Vitamin D2, such as patients receiving Vitamin D2 supplementation, results that are subtherapeutic should be confirmed with another method such as LC-MS/MS. TSH 1.15 0.32-4.0 uIU/mL FINDINGS: The bone mineral density of the lumbar spine is 1.043 with a T-score of -1.0, and a Z-score of 1.0. This represents a BMD change of 4.0% compared to the prior exam. This is not statistically significant. The bone mineral density of the left total hip is 0.861 with a T-score of -1.2, and a Z-score of 0.4. This represents BMD change of -2.7% compared to the prior exam. This is not statistically significant. The bone mineral density of the left femoral neck is 0.792 with a T-score of -1.8, and a Z-score of 0.1. This represents BMD change of -2.0% compared to the prior exam. FRACTURE RISK: The FRAX index suggests a ten year probability of major osteoporotic fracture of 10.2%, and of hip fracture 2.5%. MM/XR DEXA axial skeleton IMPRESSION: Based on bone mineral density, and according to World Health Organization (WHO) criteria, the diagnosis is consistent with osteopenia. Coding Level of Care Code Tele Est Pt Level 4 (63414) Diagnoses Osteopenia of multiple sites M85.89 Hx of endogenous hypertriglyceridemia Z86.39 Impaired fasting glucose R73.01 OAD (obstructive airway disease) J44.9 Assessment & Plan Assessment & Plan (1) Osteopenia of multiple sites: Code(s): M85.89 - Other specified disorders of bone density and structure, multiple sites Category: Medical Plan: Discuss results of her bone density scan. Reminded patient to continue taking vitamin-D 3 supplements and take adequate calcium from dietary sources. Will repeat another bone density scan in 2 years. Strongly encouraged to stop smoking (2) Hx of endogenous hypertriglyceridemia: Code(s): Z86.39 - Personal history of other endocrine, nutritional and metabolic disease Plan: Latest fasting labs done showed lipids, electrolytes, liver enzymes and within normal limits. (3) Impaired fasting glucose: Code(s): R73.01 - Impaired fasting glucose Category: Medical Plan: Your previous fasting blood sugars were elevated above 100 mg/dL. Impaired glucose metabolism increases the risk for developing diabetes mellitus type 2, as well as heart attack and stroke later on. Lifestyle changes that promotes weight loss, healthy eating habits, and regular exercise are important, and can prevent the progression to diabetes (4) OAD (obstructive airway disease): Code(s): J44.9 - Chronic obstructive pulmonary disease, unspecified Category: Medical Plan: Pulmonary function testing showed presence of obstructive airway disease but patient currently asymptomatic. Stressed again the importance of quitting smoking , but patient not inclined to quit at present time.
== END 2024-11-26 11:26 | disposition home or self-care (01) ==
LOC: HO.HMCC 10:28
PROVIDERS: PCP Internal Medicine; Visit Provider Internal Medicine
DX: R73.01 Impaired fasting glucose (principal); J44.9 Chronic obstructive pulmonary disease, unspecified; M85.89 Other specified disorders of bone density and structure, multiple sites; Z86.39 Personal history of other endocrine, nutritional and metabolic disease

== ENCOUNTER → 2024-11-26 10:28 | Outpatient (BNVA) | payer OTHER, SELFPAY | PROVIDERS: PCP Internal Medicine; Visit Provider Internal Medicine ==

== ENCOUNTER 2025-08-15 07:32 | Outpatient (REF) | payer OTHER, SELFPAY ==
--- NOTE | ~2025-08-15 | CT_ITS ---
EXAMINATION: CT LUNG SCREENING HISTORY: F17.210 - Nicotine dependence, cigarettes, uncomplicated TECHNIQUE: Low dose axial images were obtained from the sternal notch to upper abdomen without IV contrast per standard departmental protocol. Sagittal and coronal reformatted images were also obtained and reviewed. One or more of the following techniques was used for dose reduction: Automated exposure control, adjustment of the mA and/or kV according to patient size, use of iterative reconstruction technique. DLP: 42 mGy-cm COMPARISON: Radius chest CT scans most recent August 2024 FINDINGS: Lung nodules: New 3 mm groundglass attenuation right upper lobe nodule axial image 44 series 4. Stable 2 mm right lower lobe nodule axial image 104 series 4. This corresponds to a calcified nodule on previous exam. Stable 2 mm right lower lobe nodule axial image 105 series 4. Scattered areas of linear scarring or chronic subsegmental atelectasis. Lungs otherwise clear. Central airways are clear. Emphysema: none Coronary Calcification: none Aortic Arch Calcification: mild Additional Chest Findings: Normal heart size. Normal caliber thoracic aorta. There is no pleural or pericardial effusion. No enlarged mediastinal or axillary lymphadenopathy is identified. Visualized upper abdomen: Stable 1.5 x 2.7 cm low-attenuation lesion in the medial segment of the left lobe. Diverticulosis of the colon. No chest wall mass. Degenerative changes of the spine and mild curvature of the lower thoracic spine to the right.. CT/CT lung screening IMPRESSION: New 3 mm groundglass attenuation nodule. Other small pulmonary right nodules are stable. LUNG-RADS ASSESSMENT: Lung-RADS 2: Benign based on nodule size or lack of growth. MANAGEMENT: Continue annual screening with LDCT in 12 months Category S: N/A Electronically signed by: Radha Espinal MD 08/15/2025 12:28 PM [facility]
== END 2025-08-15 07:33 | disposition home or self-care (01) ==
LOC: HO.CT 07:32
PROVIDERS: PCP Internal Medicine; Visit Provider Physician Assistant Medical
DX: F17.210 Nicotine dependence, cigarettes, uncomplicated (principal)
CPT/HCPCS: 71271

== ENCOUNTER → 2025-08-15 07:34 | Outpatient (BNV) | payer OTHER, SELFPAY | PROVIDERS: PCP Internal Medicine; Visit Provider Radiology Diagnostic Radiology | DX: F17.210 Nicotine dependence, cigarettes, uncomplicated (principal) | CPT/HCPCS: 71271 ==